=== PATIENT | female | born 1950 | race Caucasian/White ===

== ENCOUNTER 2020-04-27 08:05 | Outpatient (REF) | payer MEDICARE, SELFPAY ==
[2020-04-27 11:11] LABS: MANUAL DIFF FLAG NO
[2020-04-27 11:29] LABS: Estimated Average Glucose 97 mg/dL
[2020-04-27 11:33] LABS: Basophils Percent Auto 0.6 % (0-2); Eosinophils Absolute Auto 0.1 X10*3/uL (0.0-0.4); Eosinophils Percent Auto 1.9 % (0-4); Hematocrit 38.4 % (37-47); Hemoglobin 12.6 g/dl (12.0-16.0); Imm Gran Abs Auto 0.02 X10*3/uL (0.00-0.03); Imm Gran Pct Auto 0.4 % (0.0-0.4); Lymphocytes Absolute Auto 1.4 X10*3/uL (1.2-4.9); Lymphocytes Percent Auto 26.9 % (20-40); Mean Corpuscular HGB Conc 32.8 g/dl (31.0-35.0); Mean Corpuscular Hemoglobin 30.8 pg (27.0-33.0); Mean Corpuscular Volume 93.9 fL (80-98); Mean Platelet Volume 8.9 fL (9.4-12.3); Monocytes Absolute Auto 0.4 X10*3/uL (0.1-1.2); Monocytes Percent Auto 7.5 % (2-11); Neutrophils Absolute Auto 3.4 X10*3/uL (2.0-8.3); Neutrophils Percent Auto 62.7 % (45-73); Platelet Count 376 X10*3/uL (160-400); Red Blood Count 4.09 X10*6/uL (4.20-5.50); Red Cell Distribution Width 12.5 % (11.0-16.0); Retic HGB Equivalent 34.4 pg (30.0-35.0); Reticulocyte Percent 1.1 % (0.5-1.8); Reticulocytes Absolute 0.044 X10*6/uL (0.026-0.095); White Blood Count 5.4 X10*3/uL (4.8-10.8)
[2020-04-27 11:52] LABS: Alanine Aminotransferase 16 U/L (0-31); Albumin Level 4.8 g/dL (3.5-5.0); Alkaline Phosphatase 61 U/L (39-117); Anion Gap 13 (12-20); Aspartate Amino Transferase 22 U/L (5-31); Bilirubin Total 0.5 mg/dL (0.0-1.0); Blood Urea Nitrogen 9 mg/dL (9-16); Calcium 9.2 mg/dL (8.4-10.2); Carbon Dioxide 28 mmol/L (22-29); Chloride 101 mmol/L (96-108); Cholesterol 235 mg/dL; Estimated Glomerular Filt Rate > 60; Glucose Random 91 mg/dL (60-115); HDL Cholesterol 80 mg/dL; Iron 102 mcg/dL (30-160); LDL Cholesterol Calculated 140 mg/dl; Percent Iron Saturation 27 % (15-50); Potassium 4.4 mmol/L (3.3-5.1); Sodium 138 mmol/L (135-145); Total Iron Binding Capacity 384 mcg/dL (228-428); Total Protein 7.9 g/dL (6.5-8.0); Triglycerides 75 mg/dL; Unsaturated Iron Binding 282 ug/dL
[2020-04-27 11:59] LABS: Ferritin 23 ng/mL (10-250); Thyroid Stimulating Hormone 2.94 uIU/mL (0.32-4.0); Vitamin D 25-OH Total 26.3 ng/mL (>30)
[2020-04-27 12:19] LABS: Folate > 20.0 ng/mL (> or = 4.0); Vitamin B12 855 pg/mL (200-900)
== END 2020-04-27 08:06 | disposition home or self-care (01) ==
LOC: HO.HMGCLDS 08:05
PROVIDERS: PCP Internal Medicine; Visit Provider Internal Medicine
DX: E78.00 Pure hypercholesterolemia, unspecified (principal); E03.9 Hypothyroidism, unspecified; R73.02 Impaired glucose tolerance (oral)
CPT/HCPCS: 36415; 80053; 80061; 82306; 82607; 82728; 82746; 83036; 83540; 84439; 84443; 85025; 85045

== ENCOUNTER 2020-09-21 09:50 | Outpatient (REF) | payer MEDICARE, SELFPAY ==
--- NOTE | ~2020-09-21 | US_ITS ---
EXAMINATION: US ABDOMEN COMPLETE CLINICAL INFORMATION: Other specified abnormal findings of blood chemistry. COMPARISON: None TECHNIQUE: Real-time imaging of the abdominal viscera. FINDINGS: PANCREAS: Normal. ABDOMINAL AORTA: The proximal, mid, and distal segments are normal in caliber. INFERIOR VENA CAVA: Visualized portions are normal. LIVER: Normal. The liver is normal in size. The liver contour is normal. Parenchymal echogenicity is normal. No focal hepatic lesion. There is no intrahepatic biliary duct dilatation seen. GALLBLADDER: Normal. The gallbladder is physiologically distended without evidence of stones, sludge, polyps, wall thickening or pericholecystic fluid. COMMON BILE DUCT: Normal in caliber measuring 0.2 cm in diameter. RIGHT KIDNEY: Normal. No hydronephrosis. No renal calculi or focal parenchymal lesions. The kidney measures 10.4 cm in maximum dimension. LEFT KIDNEY: There is a minimally complex cyst seen in the upper pole of the left kidney measuring 1.7 x 1.9 x 1.6 cm. This is a focal area of wall thickening or No hydronephrosis or renal calculi. The kidney measures 11.6 cm in maximum dimension. SPLEEN: Normal. The spleen measures 8.1 cm in maximum dimension. FREE FLUID: None. US/US abdomen complete IMPRESSION: Normal-appearing liver. Minimally complex cyst in the upper pole of the left kidney measuring 1.7 x 1.9 x 1.6 cm with small area of wall thickening. Ultrasound follow-up in [address] or MRI follow-up of the kidneys with and without contrast recommended.
== END 2020-09-21 09:51 | disposition home or self-care (01) ==
LOC: HO.HMGCX 09:50
PROVIDERS: PCP Internal Medicine; Visit Provider Internal Medicine
DX: R10.11 Right upper quadrant pain (principal); R79.89 Other specified abnormal findings of blood chemistry
CPT/HCPCS: 76700

== ENCOUNTER 2020-10-05 14:35 | Outpatient (REF) | payer MEDICARE, SELFPAY | END 2020-10-05 14:36 | disposition home or self-care (01) | LOC: HO.LAB 14:35 | PROVIDERS: Visit Provider Nurse Practitioner Family | DX: Z20.822 Contact with and (suspected) exposure to COVID-19 (principal); J04.0 Acute laryngitis | CPT/HCPCS: U0003; U0005 ==

== ENCOUNTER 2020-11-04 12:57 | Outpatient (REF) | payer MEDICARE, SELFPAY ==
--- NOTE | ~2020-11-04 | XR_ITS ---
EXAMINATION: XR CHEST CLINICAL INFORMATION: Cough COMPARISON: None TECHNIQUE: 2 views of the chest were obtained. FINDINGS: Lungs hyperinflated. Mild biapical pleural thickening. Emphysematous changes. No significant abnormality is noted involving the heart, lungs, mediastinum, bony thorax or soft tissues. XR/XR chest 2V IMPRESSION: COPD. No infiltrate.
== END 2020-11-04 12:58 | disposition home or self-care (01) ==
LOC: HO.HMGCX 12:57
PROVIDERS: PCP Internal Medicine; Visit Provider Hospitalist
DX: R05 Cough (principal)
CPT/HCPCS: 71046

== ENCOUNTER 2021-04-25 09:09 | Outpatient (REF) | payer MEDICARE, SELFPAY ==
--- NOTE | ~2021-04-25 | US_ITS ---
EXAMINATION: US RETROPERITONEAL LIMITED (RENAL ONLY) CLINICAL INFORMATION: Cyst of kidney, acquired. COMPARISON: Ultrasound abdomen complete 09/21/2020. TECHNIQUE: Real-time imaging of the kidneys. FINDINGS: RIGHT KIDNEY: 11.0 x 4.3 x 4.8 cm (SAG x AP x TRV). The kidney is normal in size, contour, and echogenicity. Renal cortical thickness is normal. There is a 5 mm cyst in the lower pole. No renal calculi or hydronephrosis. LEFT KIDNEY: 11.8 x 4.7 x 4.3 cm (SAG x AP x TRV). The kidney is normal in size, contour, and echogenicity. Renal cortical thickness is normal. There is a 2 x 1.7 x 1.6 cm minimally complex cyst in the upper pole with area of wall thickening. This does not appear changed from September 2020 exam. No renal calculi or hydronephrosis. US/US renal BI IMPRESSION: Stable minimally complex left renal cyst. Small right renal cyst.
== END 2021-04-25 09:10 | disposition home or self-care (01) ==
LOC: HO.HMGCX 09:09
PROVIDERS: Visit Provider Internal Medicine
DX: N28.1 Cyst of kidney, acquired (principal)
CPT/HCPCS: 76775

== ENCOUNTER 2021-12-28 08:43 | Outpatient (REF) | payer MEDICARE, SELFPAY ==
[2021-12-28 09:07] LABS: MANUAL DIFF FLAG NO
[2021-12-28 09:19] LABS: Basophils Percent Auto 0.9 % (0-2); Eosinophils Absolute Auto 0.2 X10*3/uL (0.0-0.4); Eosinophils Percent Auto 4.6 % (0-4); Hematocrit 37.8 % (37.0-47.0); Hemoglobin 12.4 g/dl (12.0-16.0); Imm Gran Abs Auto 0.01 X10*3/uL (0.00-0.03); Imm Gran Pct Auto 0.2 % (0.0-0.4); Lymphocytes Absolute Auto 1.5 X10*3/uL (1.2-4.9); Lymphocytes Percent Auto 35.2 % (20-40); Mean Corpuscular HGB Conc 32.8 g/dl (31.0-35.0); Mean Corpuscular Hemoglobin 29.9 pg (27.0-33.0); Mean Corpuscular Volume 91.1 fL (80.0-98.0); Mean Platelet Volume 8.4 fL (9.4-12.3); Monocytes Absolute Auto 0.5 X10*3/uL (0.1-1.2); Monocytes Percent Auto 10.9 % (2-11); Neutrophils Absolute Auto 2.1 x10*3/uL (2.0-8.3); Neutrophils Percent Auto 48.2 % (45-73); Platelet Count 325 X10*3/uL (160-400); Red Blood Count 4.15 X10*6/uL (4.20-5.50); Red Cell Distribution Width 12.8 % (11.0-16.0); White Blood Count 4.3 X10*3/uL (4.8-10.8)
[2021-12-28 10:32] LABS: Folate 16.5 ng/mL (> or = 4.0); Vitamin B12 449 pg/mL (200-900)
[2021-12-28 10:53] LABS: Ferritin 50 ng/mL (10-250); Free T4 (Free Thyroxine) 0.93 ng/dL (0.71-1.85); Thyroid Stimulating Hormone 3.24 uIU/mL (0.32-4.0)
[2021-12-28 11:09] LABS: Alanine Aminotransferase 18 U/L (0-31); Albumin Level 4.6 g/dL (3.5-5.0); Alkaline Phosphatase 60 U/L (39-117); Anion Gap 16 (12-20); Aspartate Amino Transferase 24 U/L (5-31); Bilirubin Total 0.3 mg/dL (0.0-1.0); Blood Urea Nitrogen 15 mg/dL (9-16); Calcium 9.7 mg/dL (8.4-10.2); Carbon Dioxide 26 mmol/L (22-29); Chloride 98 mmol/L (96-108); Cholesterol 209 mg/dL; Estimated Glomerular Filt Rate > 60; Glucose Random 94 mg/dL (60-115); HDL Cholesterol 77 mg/dL; LDL Cholesterol Calculated 115 mg/dl; Potassium 5.4 mmol/L (3.3-5.1); Sodium 135 mmol/L (135-145); Total Protein 7.7 g/dL (6.5-8.0); Triglycerides 86 mg/dL
== END 2021-12-28 08:44 | disposition home or self-care (01) ==
LOC: HO.LAB 08:43
PROVIDERS: PCP Internal Medicine; Visit Provider Internal Medicine
DX: E03.9 Hypothyroidism, unspecified (principal); E78.00 Pure hypercholesterolemia, unspecified
CPT/HCPCS: 36415; 80053; 80061; 82607; 82728; 82746; 84439; 84443; 85025

== ENCOUNTER 2022-04-24 11:16 | Outpatient (REF) | payer MEDICARE, SELFPAY ==
--- NOTE | ~2022-04-24 | XR_ITS ---
EXAMINATION: XR SHOULDER, LEFT CLINICAL INFORMATION: Left shoulder pain. COMPARISON: None TECHNIQUE: Three views of the left shoulder. FINDINGS: The bones and soft tissues are normal. No fracture. Glenohumeral and acromioclavicular alignment is anatomic with normal joint space. No abnormal soft tissue calcifications. XR/XR shoulder LT min 2V IMPRESSION: Unremarkable left shoulder.
== END 2022-04-24 11:17 | disposition home or self-care (01) ==
LOC: HO.HMGCX 11:16
PROVIDERS: PCP Internal Medicine; Visit Provider Family Medicine
DX: M79.602 Pain in left arm (principal)
CPT/HCPCS: 73030

== ENCOUNTER → 2022-05-18 09:54 | Outpatient (BNVA) | payer MEDICARE, SELFPAY | PROVIDERS: PCP Internal Medicine; Visit Provider Physician Assistant | DX: M75.102 Unspecified rotator cuff tear or rupture of left shoulder, not specified as traumatic (principal); M79.7 Fibromyalgia; E55.9 Vitamin D deficiency, unspecified | CPT/HCPCS: 99202; J1040 ==

== ENCOUNTER 2022-05-30 08:49 | Outpatient (RCR) | payer MEDICARE, SELFPAY ==
--- NOTE | 2022-05-30 15:46 | MHC.PT.EP ---
[facility] [place] Office [place] Office [place] Office [address] [facility] [address] [phone] F: [phone] F: [phone] F: [phone] F: [phone] Physical Therapy Plan of Care Date of Evaluation: Date of Surgery: NA Diagnosis: PAINFUL ARC SYNDROME L SHLDER Assessment: Pt IS 72 YO LHD F REFERRED TO PT FROM [facility]THO DAISY) WITH PAINFUL ARC SYNDROME L SHLDER. 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 NO SPECIFIC INJURY. SHE THOUGHT IT WOULD WORK ITS WAY OUT, BUT IT HASNT. EVERY ONCE IN AWHILE HER L FINGERS FEEL TINGLY. REPORTS MOST PAIN WHEN LIFTS L ARM OUT TO SIDE AND ROTATING SHLDER (IR). REPORTS SHE HAS FIBROMYALGIA AND HAS ALWAYS HAD NECK AND SHOULDER ISSUES PRESENTS TO PT WITH LIMITED POSTURE, LIMITED CERV ROM, LIMITED L SHLDER ROM (BUT NO PAINFUL ARC NOTED..CAPSULAR PATTERN OF ROM LOSS NOTED), DECREASED L SHLDER STRENGTH, AND LIMITED ADLS. Pt REPORTS SOME L FINGER PARESTHESIA AT TIMES (N INVOLVEMENT). SHOULD BENEFIT FROM PT TO ADDRESS THESE ISSUES WITH ROM AND STRENGTH WORK, MODALITIES AND ST WORK PRN, POSTURE WORK, POSSIBLE NERVE GLIDES AND FURTHER ASSESSMENT OF CERVICAL INVOLVEMENT. Frequency and Duration: The patient will be seen 2X/WK X 4 WKS/WK X 4 WKS Short Term Goals: 1. INCREASED POSTURE AWARENESS AND AWARENESS SHLDER/NECK CARE 2. CENTRALIZE SXS Snf Goals: 1. I HEP WITH DC EX PLAN 2. DECREASED L UPPER ARM PAIN AT LEAST 50% WITH ADLS 3. INCREASED L SHLDER ROM AT LEAST 20 DEGREES T/O 4. IMPROVED SPADI (81/130 SOC) Treatment Plan: Modalities to reduce pain, spasms and effusion. Manual therapy to restore motion and function. Therapeutic exercise to improve strength and flexibility. Neuromuscular re-education for posture and balance. Therapeutic activities to return to functional activities of daily living. Electronically signed by: PARVEZ APGE PT Please sign and return to therapist. Thank you for your referral.
--- NOTE | 2022-08-22 15:24 | MHC.PT.DC ---
[facility] [place] Office [place] Office [place] Office [address] [place] [address] [address] [phone] F: [phone] F: [phone] F: [phone] F: [phone] Physical Therapy Discharge Report Diagnosis: PAINFUL ARC SYNDROME L SHLDER Date of Surgery: NA Date of Evaluation: 05/30/22 Date of Discharge: 08/22/22 Treatments to Date: 1 Cancellations to Date: No Shows to Date: Discharge Status: Recommend MD Follow-up Visit Non-compliance Discharge Summary: Pt SEEN FOR INIT EVAL ONLY. PER ASSESSMENT Pt IS 72 YO LHD F REFERRED TO PT FROM [facility]TH[facility] ([place]) WITH PAINFUL ARC SYNDROME L SHLDER. 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 NO SPECIFIC INJURY. SHE THOUGHT IT WOULD WORK ITS WAY OUT, BUT IT HASNT. EVERY ONCE IN AWHILE HER L FINGERS FEEL TINGLY. REPORTS MOST PAIN WHEN LIFTS L ARM OUT TO SIDE AND ROTATING SHLDER (IR). REPORTS SHE HAS FIBROMYALGIA AND HAS ALWAYS HAD NECK AND SHOULDER ISSUES PRESENTS TO PT WITH LIMITED POSTURE, LIMITED CERV ROM, LIMITED L SHLDER ROM (BUT NO PAINFUL ARC NOTED..CAPSULAR PATTERN OF ROM LOSS NOTED), DECREASED L SHLDER STRENGTH, AND LIMITED ADLS. Pt REPORTS SOME L FINGER PARESTHESIA AT TIMES (N INVOLVEMENT). SHOULD BENEFIT FROM PT TO ADDRESS THESE ISSUES WITH ROM AND STRENGTH WORK, MODALITIES AND ST WORK PRN, POSTURE WORK, POSSIBLE NERVE GLIDES AND FURTHER ASSESSMENT OF CERVICAL INVOLVEMENT. Pt THEN CANCELLED FURTHER VISITS WITH SELF DC Electronically signed by: PARVEZ PAGE PT Please sign and return to therapist. Thank you for your referral.
== END 2022-08-22 15:24 | disposition home or self-care (01) ==
LOC: HO.PTWFD 08:49
PROVIDERS: PCP Internal Medicine; Visit Provider Physician Assistant
DX: M75.102 Unspecified rotator cuff tear or rupture of left shoulder, not specified as traumatic (principal)
CPT/HCPCS: 97110; 97162; 97535

== ENCOUNTER → 2022-06-25 09:53 | Outpatient (BNVA) | payer MEDICARE, SELFPAY | PROVIDERS: PCP Internal Medicine; Visit Provider Physician Assistant | DX: M75.102 Unspecified rotator cuff tear or rupture of left shoulder, not specified as traumatic (principal) | CPT/HCPCS: 99212 ==

== ENCOUNTER 2022-07-20 09:22 | Outpatient (REF) | payer MEDICARE, SELFPAY ==
--- NOTE | ~2022-07-20 | MM_ITS ---
EXAMINATION: BONE DENSITOMETRY CLINICAL INDICATION: Age-related osteoporosis without current pathological fracture. COMPARISON: This is the patient's baseline examination. TECHNIQUE: Using a LiveStub DXA System (software version: 13.1) manufactured by [employer], dual-energy x-ray absorptiometry was performed of the lumbar spine and left hip. The images are of good technical quality. Summary results are attached. FINDINGS: AP SPINE L1-L4: BMD 1.131 g/cm2, Z-score 1.5, T-score -0.4, normal. LEFT FEMUR, NECK: BMD 0.751 g/cm2, Z-score -0.2, T-score -2.1, osteopenia. LEFT FEMUR, TOTAL: BMD 0.747 g/cm2, Z-score -0.4, T-score -2.1, osteopenia. IDENTIFIED RISK FACTORS: Menopause. HISTORY OF FRACTURE: None listed. MEDICATIONS: Calcium supplements or multivitamin, vitamin D. MM/XR DEXA axial skeleton IMPRESSION: 1. DIAGNOSIS: Osteopenia based on the lowest T-score value of -2.1 in the femoral neck and total femur applying World Health Organization criteria. 2. 10-YEAR FRACTURE RISK PREDICTION, FRAX: Major osteoporotic fracture (clinical spine, forearm, hip or shoulder) 10.6%. Hip fracture 2.3%. 3. Treatment Recommendations: NOF guidelines recommend consideration for treatment in postmenopausal women and men age 50 and older presenting with the following: -A hip or vertebral (clinical or morphometric) fracture. -T-score less than or equal to -2.5 at the femoral neck or spine after appropriate evaluation to exclude secondary causes. -Low bone mass at the hip or spine and a 10-year fracture probability by FRAX of greater than or equal to 3% for hip fracture or greater than or equal to 20% for major osteoporotic fracture based on the [place] adapted WHO algorithm. 4. Other Recommendations: All treatment decisions require clinical judgment and consideration of individual patient factors, including patient preferences, comorbidities, previous drug use, risk factors not captured in the FRAX model (e.g. frailty, falls, vitamin D deficiency, increased bone turnover, interval significant decline in bone density) and possible under or overestimation of fracture risk by FRAX. Additional medical evaluation for secondary cause of low bone mineral density may be appropriate. FUTURE SCAN RECOMMENDATION: People with diagnosed cases of osteoporosis or at high risk for fracture should have regular bone mineral density tests. For patients eligible for Medicare, routine testing is allowed once every 2 years. The testing frequency can be increased to one year for patients who have rapidly progressing disease, those who are receiving or discontinuing medical therapy to restore bone mass, or have additional risk factors.
== END 2022-07-20 09:23 | disposition home or self-care (01) ==
LOC: HO.MAMMO 09:22
PROVIDERS: PCP Internal Medicine; Visit Provider Internal Medicine
DX: Z13.820 Encounter for screening for osteoporosis (principal); Z78.0 Asymptomatic menopausal state; M81.0 Age-related osteoporosis without current pathological fracture
CPT/HCPCS: 77080

== ENCOUNTER → 2022-08-10 09:38 | Outpatient (BNVA) | payer MEDICARE, SELFPAY | PROVIDERS: PCP Internal Medicine; Visit Provider Physician Assistant | DX: M75.102 Unspecified rotator cuff tear or rupture of left shoulder, not specified as traumatic (principal); M54.12 Radiculopathy, cervical region | CPT/HCPCS: 99212 ==

== ENCOUNTER → 2022-09-05 09:38 | Outpatient (BNVA) | payer MEDICARE, SELFPAY | PROVIDERS: PCP Internal Medicine; Visit Provider Anesthesiology | DX: M75.102 Unspecified rotator cuff tear or rupture of left shoulder, not specified as traumatic (principal); M12.812 Other specific arthropathies, not elsewhere classified, left shoulder; G89.4 Chronic pain syndrome | CPT/HCPCS: 99202 ==

== ENCOUNTER → 2022-09-10 08:48 | Outpatient (BNVA) | payer MEDICARE, SELFPAY | PROVIDERS: PCP Internal Medicine; Visit Provider Physician Assistant | DX: M75.102 Unspecified rotator cuff tear or rupture of left shoulder, not specified as traumatic (principal) | CPT/HCPCS: 20610; 99212; J1040 ==

== ENCOUNTER 2022-09-17 07:29 | Outpatient (REF) | payer MEDICARE, SELFPAY | END 2022-09-17 07:30 | disposition home or self-care (01) | LOC: HO.MRI 07:29 | PROVIDERS: PCP Internal Medicine; Visit Provider Physician Assistant | DX: M75.102 Unspecified rotator cuff tear or rupture of left shoulder, not specified as traumatic (principal); M12.812 Other specific arthropathies, not elsewhere classified, left shoulder | CPT/HCPCS: 73221 ==

== ENCOUNTER 2022-09-24 10:45 | Outpatient (AMB) | payer MEDICARE, SELFPAY ==
--- NOTE | 2022-09-24 10:43 | MHC.OFFVIS ---
Intake Vital Signs 09/24/22 10:47 Height 5 ft 7 in Weight 129 lb BMI 20.2 Intake Visit Reasons: Tele - Left shoulder MRI review Intake Note: Irena is a 72 year old female who presents today for a MRI review for her left shoulder. Allergies penicillin V Allergy (Unknown, Verified 09/24/22 10:46) rash Penicillins [PENICILLINS] Allergy (Unknown, Verified 09/24/22 10:46) RASH Sulfa (Sulfonamide Antibiotics) [SULFA (SULFONAMIDE ANTIBIOTICS)] Allergy (Unknown, Verified 09/24/22 10:46) RASH HPI Tele - Left shoulder MRI review HPI Details 72-year-old female who presents via telehealth today for a follow up of left shoulder pain and results of her MRI. [facility] Medical History Anemia Anxiety Breast cancer screening by mammogram Bronchitis Cough Fibromyalgia Hypercholesterolemia Hypothyroidism Impacted cerumen of both ears Impacted cerumen of left ear Insomnia Laryngitis Left arm pain Migraine Neck pain RUQ abdominal pain Vitamin D deficiency Surgical History History of colon surgery Family History Father Hypertension Brain cancer Mother No problems noted. Brother Prostate cancer Daughter In good health Social History Housing: House Alcohol intake: current Alcohol intake frequency: holidays/special occasions only Patient Tobacco Use Status: Former Tobacco user Years Smoked: stopped 1979 e-Cigarette/Vaping Use: Never Used Second Hand Smoke Exposure: No service: No Current occupational status: retired Current occupation: left hand Cognitive needs: No Hearing needs: No Vision needs: Yes Review of Systems Const All systems reviewed & are unremarkable except as noted in HPI and below Physical Exam Vital Signs: BMI result Body Mass Index 20.2 Extrem Other: Deferred due to being a telehealth visit. Assessment & Plan Assessment & Plan (1) Painful arc syndrome of left shoulder: Code(s): M75.102 - Unspecified rotator cuff tear or rupture of left shoulder, not specified as traumatic Plan Ms. Hill is a 72-year-old female who presents via telehealth today for a follow up of left shoulder pain and results of her MRI. I again discussed the role of formal physical therapy with the patient. She states she does a lot of work around her house and exercises daily. Therefore she would like to defer at this time. She also expressed that she is not sure her insurance will cover physical therapy. She has decided that in the event her symptoms worsen or should she feel she has plateau then she will contact the office for a referral to formal physical therapy. I also discussed the role of cortisone injections and educated her that she is able to receive them every 3 months and no sooner. Follow up will be PRN, or sooner if needed. MRI of the left shoulder, obtained on 09/17/2022, revealed: 1. Mild to moderate supraspinatus and subscapularis tendinosis. No definite rotator cuff tear. 2. Mild subacromial subdeltoid bursitis. 3. Mild glenohumeral osteoarthritis with a small joint effusion. Patient Instructions: Scribed for Bri Joaquin PA-C by Marisel Waters medical technician assistant, on 09/24/2022 at 10:30 am, EST. Your attestation Telehealth Telehealth Location of provider rendering services: practice address Location of patient: address on file Patient Identification confirmed using: Name, : Yes Telehealth method: voice only Patient verbally consented to treatment: Yes Patient verbally consented to billing insurance company: Yes Patient informed of any privacy concerns related to visit: Yes Minutes spent on Phone/Video with Pt.: 5 Coding Level of Care Code Tele Est Pt Level 3 (99969) Diagnoses Painful arc syndrome of left shoulder M75.102
[2022-09-24 10:47] VITALS: BMI 20.2
== END 2022-09-24 10:47 | disposition home or self-care (01) ==
LOC: HO.HOS 10:45
PROVIDERS: PCP Internal Medicine; Visit Provider Physician Assistant
DX: M75.102 Unspecified rotator cuff tear or rupture of left shoulder, not specified as traumatic (principal)
CPT/HCPCS: 99441

== ENCOUNTER → 2022-09-24 10:45 | Outpatient (BNVA) | payer MEDICARE, SELFPAY | PROVIDERS: PCP Internal Medicine; Visit Provider Physician Assistant ==

== ENCOUNTER 2022-12-28 06:35 | Outpatient (REF) | payer MEDICARE, SELFPAY ==
[2022-12-28 06:45] LABS: MANUAL DIFF FLAG NO
[2022-12-28 07:08] LABS: Basophils Percent Auto 0.7 % (0-2); Eosinophils Absolute Auto 0.1 X10*3/uL (0.0-0.4); Eosinophils Percent Auto 3.2 % (0-4); Hemoglobin 12.5 g/dl (12.0-16.0); Imm Gran Abs Auto 0.01 X10*3/uL (0.00-0.03); Imm Gran Pct Auto 0.2 % (0.0-0.4); Lymphocytes Absolute Auto 1.4 X10*3/uL (1.2-4.9); Lymphocytes Percent Auto 31.2 % (20-40); Mean Corpuscular HGB Conc 32.9 g/dl (31.0-35.0); Mean Corpuscular Hemoglobin 30.4 pg (27.0-33.0); Mean Corpuscular Volume 92.5 fL (80.0-98.0); Mean Platelet Volume 8.4 fL (9.4-12.3); Monocytes Absolute Auto 0.4 X10*3/uL (0.1-1.2); Monocytes Percent Auto 8.1 % (2-11); Neutrophils Absolute Auto 2.5 x10*3/uL (2.0-8.3); Neutrophils Percent Auto 56.6 % (45-73); Platelet Count 376 X10*3/uL (160-400); Red Blood Count 4.11 X10*6/uL (4.20-5.50); Red Cell Distribution Width 12.2 % (11.0-16.0); White Blood Count 4.4 X10*3/uL (4.8-10.8)
[2022-12-28 07:32] LABS: Anion Gap 14 (12-20)
[2022-12-28 07:37] LABS: Alanine Aminotransferase 12 U/L (0-31); Albumin Level 4.6 g/dL (3.5-5.0); Alkaline Phosphatase 61 U/L (39-117); Aspartate Amino Transferase 18 U/L (5-31); Bilirubin Total 0.6 mg/dL (0.0-1.0); Blood Urea Nitrogen 10 mg/dL (9-16); Calcium 9.8 mg/dL (8.4-10.2); Carbon Dioxide 25 mmol/L (22-29); Chloride 102 mmol/L (96-108); Cholesterol 211 mg/dL (<200); Estimated Glomerular Filt Rate > 60; Glucose Random 93 mg/dL (60-115); HDL Cholesterol 71 mg/dL (>40); LDL Cholesterol Calculated 127 mg/dL (<100); Sodium 137 mmol/L (135-145); Total Protein 7.8 g/dL (6.5-8.0); Triglycerides 68 mg/dL (<150)
[2022-12-28 07:47] LABS: Free T4 (Free Thyroxine) 0.99 ng/dL (0.71-1.85); Thyroid Stimulating Hormone 3.06 uIU/mL (0.32-4.0); Vitamin D 25-OH Total 29.1 ng/mL (>30)
[2022-12-28 08:05] LABS: Folate 12.6 ng/mL (> or = 4.0); Vitamin B12 358 pg/mL (200-900)
== END 2022-12-28 06:36 | disposition home or self-care (01) ==
LOC: HO.LAB 06:35
PROVIDERS: PCP Internal Medicine; Visit Provider Internal Medicine
DX: R73.02 Impaired glucose tolerance (oral) (principal); E78.00 Pure hypercholesterolemia, unspecified; M81.0 Age-related osteoporosis without current pathological fracture
CPT/HCPCS: 36415; 80053; 80061; 82306; 82607; 82746; 84439; 84443; 85025

== ENCOUNTER 2023-01-11 09:56 | Outpatient (AMB) | payer MEDICARE, SELFPAY ==
[2023-01-11 10:00] VITALS: BP 152/92; PULSE 81; O2SAT 98; BMI 20.5
--- NOTE | 2023-01-11 10:00 | MHC.PC.OV ---
Vital Signs 01/11/23 10:00 Height 5 ft 7 in Weight 131 lb BMI 20.5 BP 152/92 H Blood Pressure Location Lt brachial Position Sitting Pulse 81 Pulse Source Pulse Oximeter Pulse Oximetry (%) 98 Oxygen Delivery Method Room Air Intake Visit Reasons: Annual Physical Allergies penicillin V Allergy (Unknown, Verified 01/11/23 10:00) rash Penicillins [PENICILLINS] Allergy (Unknown, Verified 01/11/23 10:00) RASH Sulfa (Sulfonamide Antibiotics) [SULFA (SULFONAMIDE ANTIBIOTICS)] Allergy (Unknown, Verified 01/11/23 10:00) RASH Medication List - Last Reconciled 01/11/23 by Raheel Bae Po, amitriptyline 10 mg PO BEDTIME 90 days cholecalciferol (vitamin D3) 50 mcg PO DAILY ferrous sulfate (Feosol) 325 mg PO BID levothyroxine 50 mcg PO QAM lorazepam 1 mg PO BID-TID 30 days sumatriptan succinate 50 mg PO Q2-4H PRN tramadol 25 mg (1/2 x 50 mg) PO BEDTIME PRN trazodone 25 mg (1/2 x 50 mg) PO BEDTIME PRN Tobacco use date assessed: 07/06/22 Fall risk assessment: 1 Fall in past year Last assessed Fall Risk: 01/11/23 Dental Screening Dental Screen Date: 01/11/23 Did you have a dental visit in the last 12 months?: Yes Did you have a dental problem in the last 6 months where you did not have access to dental care?: No Was dental information given to patient?: Patient has dentist HPI Annual Physical HPI Details 72-year-old female with impaired glucose tolerance, hypercholesterolemia hypothyroidism generalized anxiety disorder osteoporosis last seen in June 2022. Noted some elevated blood pressure the last time and was advised to monitor this. Patient is here for physical patient is up-to-date with colonoscopy, up-to-date with mammogram and bone density. Patient was seen by the Ortho for the left shoulder pain September 2019 diagnosis of painful arc syndrome of the left shoulder advised physical therapy but declined MRI of the left shoulder September 2022 revealed mild to moderate supraspinatus and subscapularis tendinosis no definite rotator cuff tear mild subacromial deltoid bursitis mild glenohumeral arthritis. Patient was seen by the pain management also had an injection done April 2022 from Ortho [facility] Medical History Anemia Anxiety Breast cancer screening by mammogram Bronchitis Cough Fibromyalgia Hypercholesterolemia Hypothyroidism Impacted cerumen of both ears Impacted cerumen of left ear Insomnia Laryngitis Left arm pain Migraine Neck pain RUQ abdominal pain Vitamin D deficiency Surgical History History of colon surgery Family History Father Hypertension Brain cancer Mother No problems noted. Brother Prostate cancer Daughter In good health Social History (Updated 01/11/23 @ 10:28 by Raheel Colvin MD) Housing: House Alcohol intake: current Alcohol intake frequency: holidays/special occasions only Patient Tobacco Use Status: Former Tobacco user Tobacco use type: Cigarette Years Smoked: 1979 e-Cigarette/Vaping Use: Never Used Second Hand Smoke Exposure: No service: No Current occupational status: retired Current occupation: left hand Cognitive needs: No Hearing needs: No Vision needs: Yes Questionnaire PHQ-9 Over the last 2 weeks, how often have you been bothered by any of the following problems? 1. Little interest or pleasure in doing things: not at all 2. Feeling down, depressed, or hopeless: not at all 3. Trouble falling or staying asleep, or sleeping too much: not at all 4. Feeling tired or having little energy: not at all 5. Poor appetite or overeating: not at all 6. Feeling bad about yourself - or that you are a failure or have let yourself or your family down: not at all 7. Trouble concentrating on things, such as reading the newspaper or watching television: not at all 8. Moving or speaking so slowly that other people could have noticed. Or the opposite - being so fidgety or restless that you have been moving around a lot more than usual: not at all 9. Thoughts that you would be better off or of hurting yourself in some way: not at all Total score: 0 Depression Screening Interpretation: Negative Depression Screening Done: Yes Source: Developed by Drs. Buck Colvin, Kelsy Carrillo, Jose Martínez and colleagues, with an educational marciano from [employer] Thrive Questionnaire Date Thrive assessed: 07/06/22 AUDIT C Alcohol Use Questionnaire (AUDIT-C) 1. How often do you have a drink containing alcohol?: 2-4 times a month 2. How many drinks containing alcohol do you have on a typical day when you are drinking?: 1 or 2 3. How often do you have six or more drinks on one occasion?: Never Total Score: 2 Score Reviewed/Action Taken: No BERNICE-7 AMB Questionnaire BERNICE-7 Date BERNICE - 7 assessed: 07/06/22 Source: Developed by Drs. Buck Colvin, Kelsy Carrillo, Jose Martínez and colleagues, with an educational marciano from [employer] Review of Systems Const Denies poor appetite and Denies weakness Eyes Denies no additional complaints ENT Reports Normal hearing present, Denies dizziness, Denies nasal congestion, Denies tinnitus and Denies sore throat Card Denies chest pain, Denies syncope, Denies rapid heart rate and Denies dyspnea Resp Denies cough and Denies dyspnea GI Denies change in stool character, Reports constipation, Denies diarrhea, Denies nausea and Denies vomiting Denies urinary frequency, Denies difficulty voiding and Denies dysuria Neuro Reports Normal hearing present, Denies confusion, Denies dizziness, Denies syncope and Denies weakness Psych Denies confusion Physical exam (Primary Care) Vital Signs: Last Vital Signs Pulse 81 01/11/23 10:00 BP 152/92 H 01/11/23 10:00 Pulse Ox 98 01/11/23 10:00 Oxygen Delivery Method Room Air 01/11/23 10:00 BMI result Body Mass Index 20.5 Tobacco/Smoking Status: Tobacco use Status Tobacco use date assessed 07/06/22 01/11/23 10:05 Patient Tobacco Use Status Former Tobacco user 01/11/23 10:05 Tobacco use type Cigarette 01/11/23 10:05 e-Cigarette/Vaping Use Never Used 01/11/23 10:05 PHQ-9: PHQ-9 Score PHQ-9: Total score 0 01/11/23 10:05 Depression Screening Interpretation: Negative Thrive Assessment: Date of Thrive Assessment Date Thrive assessed 07/06/22 01/11/23 10:05 Const General: No confusion Orientation/consciousness: No confusion HENMT Head: Yes normocephalic Ears: external ears normal and TM's normal bilaterally Face and sinus: Yes normal facial exam Mouth: moist mucous membranes Throat: Yes tonsils normal Eyes Conjunctivae: conjunctivae normal Pupils: Equal, round and reactive pupils present and Pupil accommodation reflex normal Direct Ophthalmoscopy: normal light reflex Neck Neck: No lymphadenopathy Thyroid: Thyroid normal Chest Chest palpation & inspection: normal inspection of the chest Resp Effort & Inspection: normal respiratory effort and no audible wheezes Auscultation: clear to auscultation bilaterally, no crackles, no wheezes and lung sounds not diminished Cardio Rate: regular rate Rhythm: regular rhythm Peripheral pulses: radial pulses present and dorsalis pedis present GI Palpation (GI): no masses Auscultation: normal bowel sounds and normoactive bowel sounds Rectal Exam - Female: deferred Skin General skin exam: no rashes or lesions noted Rashes: no rashes Neuro General: No confusion Cranial nerves: Yes Equal, round and reactive pupils present and Yes Normal hearing present Cognition (Neuro): normal cognition Gait exam (Neuro): Normal gait present Motor exam (neuro): 5/5 motor strength present throughout Deep tendon reflexes (DTR's): Right brachioradialis reflex intensity grade: 2+, Left brachioradialis reflex intensity grade: 2+, Right patellar reflex intensity grade: 2+ and Left patellar reflex intensity grade: 2+ Extrem General: No edema Assessment and Plan Assessment & Plan (1) Annual physical exam: Code(s): Z00.00 - Encounter for general adult medical examination without abnormal findings (2) Hypothyroidism: Code(s): E03.9 - Hypothyroidism, unspecified Qualifiers: Hypothyroidism type: acquired Qualified Code(s): E03.9 - Hypothyroidism, unspecified Plan: Continue with thyroid medication (3) Hypercholesterolemia: Code(s): E78.00 - Pure hypercholesterolemia, unspecified Plan: Avoid fried foods, chicken skin, eggs, butter margarine, pastries and meat. Be it pork or beef they have a lot of cholesterol LDL goal of less than 130 and triglyceride of less than 150 patient's blood work December 2022 is in the normal range (4) Impaired glucose tolerance: Code(s): R73.02 - Impaired glucose tolerance (oral) Plan: Decrease the amount of carbohydrate intake, pasta, bread, rice and potatoes are all sugar and that is aside from all the sweet stuff, remember that fruits are good but they are Sweet also. (5) Generalized anxiety disorder: Comment: Declined referral for counseling Code(s): F41.1 - Generalized anxiety disorder Plan: Continue with medication as needed (6) Blood pressure elevated without history of HTN: Code(s): R03.0 - Elevated blood-pressure reading, without diagnosis of hypertension (7) Rotator cuff tear arthropathy of left shoulder: Code(s): M75.102 - Unspecified rotator cuff tear or rupture of left shoulder, not specified as traumatic; M12.812 - Other specific arthropathies, not elsewhere classified, left shoulder Plan: Patient follows up with Orthopedics and has decided to just monitor (8) Hypertension: Code(s): I10 - Essential (primary) hypertension Medications: New hydrochlorothiazide 12.5 mg PO DAILY 30 tabs 4RF I10 - Essential (primary) hypertension Coding Level of Care Code Est Pt Prev Care >65y(90227) Diagnoses Annual physical exam Z00.00 Acquired hypothyroidism E03.9 Hypothyroidism type: acquired Hypercholesterolemia E78.00 Impaired glucose tolerance R73.02 Generalized anxiety disorder F41.1 Blood pressure elevated without history of HTN R03.0 Rotator cuff tear arthropathy of left shoulder M75.102; M12.812 Hypertension I10 Additional Codes PHQ-9 - 72989 - PHQ-9 Billing: [id number])
== END 2023-01-11 10:50 | disposition home or self-care (01) ==
PROVIDERS: Visit Provider Internal Medicine
DX: Z00.00 Encounter for general adult medical examination without abnormal findings (principal); E03.9 Hypothyroidism, unspecified; E78.00 Pure hypercholesterolemia, unspecified; R73.02 Impaired glucose tolerance (oral); F41.1 Generalized anxiety disorder; R03.0 Elevated blood-pressure reading, without diagnosis of hypertension; M75.102 Unspecified rotator cuff tear or rupture of left shoulder, not specified as traumatic; M12.812 Other specific arthropathies, not elsewhere classified, left shoulder; I10 Essential (primary) hypertension
CPT/HCPCS: 99397

== ENCOUNTER 2023-02-21 10:00 | Outpatient (RCR) | payer MEDICARE, SELFPAY | END 2023-04-16 13:33 | disposition home or self-care (01) | LOC: HO.PTWFD 10:00 | PROVIDERS: PCP Internal Medicine; Visit Provider Anesthesiology | DX: M75.102 Unspecified rotator cuff tear or rupture of left shoulder, not specified as traumatic (principal); M12.812 Other specific arthropathies, not elsewhere classified, left shoulder; G89.4 Chronic pain syndrome | CPT/HCPCS: 97110; 97140; 97161 ==

== ENCOUNTER 2023-05-10 09:29 | Outpatient (AMB) | payer MEDICARE, SELFPAY ==
[2023-05-10 09:40] VITALS: BP 132/70; PULSE 70; O2SAT 99; BMI 20.7
--- NOTE | 2023-05-10 09:40 | A.OFFPC_ITS ---
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 Allergies penicillin V Allergy (Unknown, Verified 05/10/23 09:40) rash Penicillins [PENICILLINS] Allergy (Unknown, Verified 05/10/23 09:40) RASH Sulfa (Sulfonamide Antibiotics) [SULFA (SULFONAMIDE ANTIBIOTICS)] Allergy (Unknown, Verified 05/10/23 09:40) RASH Medication List - Last Reconciled 05/10/23 by Raheel Colvin MD amitriptyline 10 mg PO BEDTIME 90 days cholecalciferol (vitamin D3) 50 mcg PO DAILY ferrous sulfate (Feosol) 325 mg PO BID hydrochlorothiazide 25 mg PO DAILY levothyroxine 50 mcg PO QAM lorazepam 1 mg PO BID-TID 30 days sumatriptan succinate 50 mg PO Q2-4H PRN tramadol 25 mg (1/2 x 50 mg) PO BEDTIME PRN trazodone 25 mg (1/2 x 50 mg) PO BEDTIME PRN Tobacco use date assessed: 05/10/23 Fall risk assessment: No Falls in past year Last assessed Fall Risk: 05/10/23 Dental Screening Dental Screen Date: 05/10/23 Did you have a dental visit in the last 12 months?: Yes Did you have a dental problem in the last 6 months where you did not have access to dental care?: No Was dental information given to patient?: Patient has dentist HPI 2 Months Follow up HPI Details 73-year-old female with hypothyroidism h ypercholesterolemia impaired glucose tolerance generalized anxiety disorder and left shoulder rotator cuff arthropathy last seen in December 2022. Patient's colonoscopy was August 2018 having tubular adenoma. Mammogram is due and up-to-date with bone density. Review of the notes had house calls [facility] Medical History (Updated 05/10/23 @ 09:53 by Raheel Colvin MD) Blood pressure elevated without history of HTN Left arm pain Breast cancer screening by mammogram Impacted cerumen of left ear Impacted cerumen of both ears Bronchitis Cough Laryngitis RUQ abdominal pain Anemia Neck pain Hypercholesterolemia Vitamin D deficiency Migraine Hypothyroidism Fibromyalgia Anxiety Insomnia Surgical History History of colon surgery Family History Father Hypertension Brain cancer Mother No problems noted. Brother Prostate cancer Daughter In good health Social History (Updated 01/11/23 @ 10:28 by Raheel Colvin MD) Housing: House Alcohol intake: current Alcohol intake frequency: holidays/special occasions only Patient Tobacco Use Status: Former Tobacco user Tobacco use type: Cigarette Years Smoked: stopped 1979 e-Cigarette/Vaping Use: Never Used Second Hand Smoke Exposure: No service: No Current occupational status: retired Current occupation: left hand Cognitive needs: No Hearing needs: No Vision needs: Yes Questionnaire Thrive Questionnaire Date Thrive assessed: 07/06/22 AUDIT C Alcohol Use Questionnaire (AUDIT-C) 1. How often do you have a drink containing alcohol?: 2-4 times a month 2. How many drinks containing alcohol do you have on a typical day when you are drinking?: 1 or 2 3. How often do you have six or more drinks on one occasion?: Never Total Score: 2 Score Reviewed/Action Taken: No BERNICE-7 AMB Questionnaire BERNICE-7 Date BERNICE - 7 assessed: 07/06/22 Source: Developed by Drs. Buck Colvin, Kelsy Carrillo, Jose Martínez and colleagues, with an educational marciano from [employer]. Physical exam (Primary Care) Vital Signs: Last Vital Signs Pulse 70 05/10/23 09:40 BP 132/70 05/10/23 09:40 Pulse Ox 99 05/10/23 09:40 Oxygen Delivery Method Room Air 05/10/23 09:40 BMI result Body Mass Index 20.7 Tobacco/Smoking Status: Tobacco use Status Tobacco use date assessed 05/10/23 05/10/23 09:45 Patient Tobacco Use Status Former Tobacco user 05/10/23 09:45 Tobacco use type Cigarette 05/10/23 09:45 e-Cigarette/Vaping Use Never Used 05/10/23 09:45 Thrive Assessment: Date of Thrive Assessment Date Thrive assessed 07/06/22 05/10/23 09:45 Const General: alert; No acute distress Eyes Conjunctivae: conjunctivae normal Resp Auscultation: clear to auscultation bilaterally Cardio Rate: regular rate Rhythm: regular rhythm GI Inspection: Yes normal to inspection Extrem General: Yes normal to inspection and No edema Assessment and Plan Assessment & Plan (1) Hypertension: Code(s): I10 - Essential (primary) hypertension Plan: Continue with blood pressure medication. Decrease salt intake and exercise presently on hydrochlorothiazide 12.5 mg once a day (2) Rotator cuff tear arthropathy of left shoulder: Code(s): M75.102 - Unspecified rotator cuff tear or rupture of left shoulder, not specified as traumatic; M12.812 - Other specific arthropathies, not elsewhere classified, left shoulder Plan: Patient has been sent for physical therapy (3) Hypothyroidism: Code(s): E03.9 - Hypothyroidism, unspecified Qualifiers: Hypothyroidism type: acquired Qualified Code(s): E03.9 - Hypothyroidism, unspecified Plan: Continue with thyroid medication once a day (4) Hypercholesterolemia: Code(s): E78.00 - Pure hypercholesterolemia, unspecified Plan: Avoid fried foods, chicken skin, eggs, butter margarine, pastries and meat. Be it pork or beef they have a lot of cholesterol LDL goal of less than 130 and triglyceride of less than 150 patient on diet control and December 2022 blood work within normal limits (5) Impaired glucose tolerance: Code(s): R73.02 - Impaired glucose tolerance (oral) Plan: Decrease the amount of carbohydrate intake, pasta, bread, rice and potatoes are all sugar and that is aside from all the sweet stuff, remember that fruits are good but they are Sweet also. (6) Generalized anxiety disorder: Comment: Declined referral for counseling Code(s): F41.1 - Generalized anxiety disorder Plan: Continue with therapy (7) Mammogram declined: Code(s): Z53.20 - Procedure and treatment not carried out because of patient's decision for unspecified reasons (8) Tubular adenoma of colon: Code(s): D12.6 - Benign neoplasm of colon, unspecified Orders: Orders Complete Blood Count Auto Diff 3 Months I10 - Essential (primary) hypertension Comprehensive Met. Panel 3 Months I10 - Essential (primary) hypertension Thyroid Stimulating Hormone 3 Months I10 - Essential (primary) hypertension Lipid Panel 3 Months E78.00 - Pure hypercholesterolemia, unspecified, I10 - Essential (primary) hypertension Vitamin B12 and Folate 3 Months I10 - Essential (primary) hypertension Vitamin D 25-OH Total 3 Months I10 - Essential (primary) hypertension Free T4 (Free Thyroxine) 3 Months I10 - Essential (primary) hypertension Referrals Gastroenterology Referral D12.6 - Benign neoplasm of colon, unspecified Medications: Changed From hydrochlorothiazide 12.5 mg PO DAILY 30 tabs 4RF I10 - Essential (primary) hypertension To hydrochlorothiazide 25 mg PO DAILY 90 tabs 2RF I10 - Essential (primary) hypertension Refilled tramadol 25 mg (1/2 x 50 mg) PO BEDTIME PRN 30 tabs 1RF pain M54.2 - Cervicalgia Coding Level of Care Code Est Pt Level 4 (22659) Diagnoses Hypertension I10 Rotator cuff tear arthropathy of left shoulder M75.102; M12.812 Acquired hypothyroidism E03.9 Hypothyroidism type: acquired Hypercholesterolemia E78.00 Impaired glucose tolerance R73.02 Generalized anxiety disorder F41.1 Mammogram declined Z53.20 Tubular adenoma of colon D12.6
== END 2023-05-10 10:16 | disposition home or self-care (01) ==
PROVIDERS: PCP Internal Medicine; Visit Provider Internal Medicine
DX: I10 Essential (primary) hypertension (principal); M75.102 Unspecified rotator cuff tear or rupture of left shoulder, not specified as traumatic; M12.812 Other specific arthropathies, not elsewhere classified, left shoulder; E03.9 Hypothyroidism, unspecified; E78.00 Pure hypercholesterolemia, unspecified; R73.02 Impaired glucose tolerance (oral); F41.1 Generalized anxiety disorder; Z53.20 Procedure and treatment not carried out because of patient's decision for unspecified reasons; D12.6 Benign neoplasm of colon, unspecified
CPT/HCPCS: 99214

== ENCOUNTER 2023-05-17 11:26 | Outpatient (REF) | payer MEDICARE, SELFPAY ==
--- NOTE | ~2023-05-17 | XR_ITS ---
EXAMINATION: XR HIP, LEFT CLINICAL INFORMATION: Left hip pain COMPARISON: None available. TECHNIQUE: Two views of the left hip. FINDINGS: No fracture. Alignment is anatomic. Hip joint space is maintained. Soft tissues are unremarkable. XR/XR hip LT min 2V IMPRESSION: Normal left hip.
== END 2023-05-17 11:27 | disposition home or self-care (01) ==
LOC: HO.HMGCX 11:26
PROVIDERS: PCP Internal Medicine; Visit Provider Internal Medicine
DX: M25.552 Pain in left hip (principal)
CPT/HCPCS: 73502

== ENCOUNTER 2023-11-11 14:27 | Outpatient (AMB) | payer MEDICARE, SELFPAY ==
[2023-11-11 14:29] VITALS: BP 132/78; PULSE 67; O2SAT 98
--- NOTE | 2023-11-11 14:29 | MHC.PC.OV ---
Vital Signs 11/11/23 14:29 Height 5 ft 7 in Weight 128 lb BMI 20.0 BP 132/78 Blood Pressure Location Lt brachial Position Sitting Pulse 67 Pulse Source Pulse Oximeter Pulse Oximetry (%) 98 Oxygen Delivery Method Room Air Intake Visit Reasons: 3 MONTH MED VISIT Allergies penicillin V Allergy (Unknown, Verified 11/11/23 14:30) rash Penicillins [PENICILLINS] Allergy (Unknown, Verified 11/11/23 14:30) RASH Sulfa (Sulfonamide Antibiotics) [SULFA (SULFONAMIDE ANTIBIOTICS)] Allergy (Unknown, Verified 11/11/23 14:30) RASH Tobacco use date assessed: 05/10/23 Fall risk assessment: No Falls in past year Last assessed Fall Risk: 11/11/23 Dental Screening Dental Screen Date: 05/10/23 HPI 3 MONTH MED VISIT HPI Details 73-year-old female with hypertension hypothyroidism, hypercholesterolemia, impaired glucose tolerance and generalized anxiety disorder last seen in 05/07/2023. Patient also has left shoulder rotator cuff arthropathy/tear and has been sent for physical therapy. Patient was reminded about colonoscopy. Declined mammogram.. Patient did have a left hip x-ray which is negative. [facility] Medical History (Updated 05/15/23 @ 21:25 by Raheel Colvin MD) Blood pressure elevated without history of HTN Left arm pain Breast cancer screening by mammogram Impacted cerumen of left ear Impacted cerumen of both ears Bronchitis Cough Laryngitis RUQ abdominal pain Anemia Neck pain Hypercholesterolemia Vitamin D deficiency Migraine Hypothyroidism Fibromyalgia Anxiety Insomnia Surgical History History of colon surgery Family History Father Hypertension Brain cancer Mother No problems noted. Brother Prostate cancer Daughter In good health Social History (Updated 01/11/23 @ 10:28 by Raheel Colvin MD) Housing: House Alcohol intake: current Alcohol intake frequency: holidays/special occasions only Patient Tobacco Use Status: Former Tobacco user Tobacco use type: Cigarette Years Smoked: stopped 1979 e-Cigarette/Vaping Use: Never Used Second Hand Smoke Exposure: No service: No Current occupational status: retired Current occupation: left hand Cognitive needs: No Hearing needs: No Vision needs: Yes Questionnaire PHQ-9 Over the last 2 weeks, how often have you been bothered by any of the following problems? 1. Little interest or pleasure in doing things: not at all 2. Feeling down, depressed, or hopeless: not at all 3. Trouble falling or staying asleep, or sleeping too much: not at all 4. Feeling tired or having little energy: not at all 5. Poor appetite or overeating: not at all 6. Feeling bad about yourself - or that you are a failure or have let yourself or your family down: not at all 7. Trouble concentrating on things, such as reading the newspaper or watching television: not at all 8. Moving or speaking so slowly that other people could have noticed. Or the opposite - being so fidgety or restless that you have been moving around a lot more than usual: not at all 9. Thoughts that you would be better off or of hurting yourself in some way: not at all Total score: 0 Depression Screening Interpretation: Negative Depression Screening Done: Yes Source: Developed by Drs. Buck Colvin, Kelsy Carrillo, Jose Martínez and colleagues, with an educational marciano from [employer]. Thrive Questionnaire Date Thrive assessed: 11/11/23 I am a: Patient What is your living situation today?: I have a steady place to live Within the past 12 months, did the food you bought not last and you didn't have the money to get more?: Never true Within the past 12 months, did you worry whether your food would run out before you got money to buy more?: Never true Do you have trouble paying for medicines?: No Do you have trouble getting transportation to medical appointments?: No Do you have trouble paying your heating and electricity bill?: No Do you have trouble taking care of your child, family member or friend?: No Do you have trouble with day-to-day activities such as bathing, preparing meals, shopping, managing finances, etc.?: No Are you currently unemployed and looking for a job?: No Are you interested in more education?: No Currently or been in a relationship where the following occur: No concerns reported THRIVE Score: 0 AUDIT C Alcohol Use Questionnaire (AUDIT-C) 1. How often do you have a drink containing alcohol?: 2-4 times a month 2. How many drinks containing alcohol do you have on a typical day when you are drinking?: 1 or 2 3. How often do you have six or more drinks on one occasion?: Never Total Score: 2 Score Reviewed/Action Taken: No BERNICE-7 AMB Questionnaire BERNICE-7 Date BERNICE - 7 assessed: 11/11/23 Feeling nervous, anxious, or on edge: 0 = Not at all Not being able to stop or control worryin = Not at all Worrying too much about different things: 0 = Not at all Trouble relaxin = Not at all Being so restless that it is hard to sit still: 0 = Not at all Becoming easily annoyed or irritable: 0 = Not at all Feeling afraid as if something awful might happen: 0 = Not at all Total BERNICE-7 score (0-4 normal; 5-9 mild; 10-14 moderate; 15-21 severe): 0 Source: Developed by Drs. uBck Colvin, Kelsy Carrillo, Jose Martínez and colleagues, with an educational marciano from [employer]. Physical exam (Primary Care) Vital Signs: Oxygen Delivery Method Room Air 11/11/23 14:29 BMI result Body Mass Index 20.0 Tobacco/Smoking Status: Tobacco use Status Tobacco use date assessed 05/10/23 05/10/23 09:45 Patient Tobacco Use Status Former Tobacco user 05/10/23 09:45 Tobacco use type Cigarette 05/10/23 09:45 e-Cigarette/Vaping Use Never Used 05/10/23 09:45 Depression Screening Interpretation: Negative Thrive Assessment: Date of Thrive Assessment Date Thrive assessed 07/06/22 05/10/23 09:45 Currently or been in a relationship where the following occur: No concerns reported Const General: alert; No acute distress Eyes Conjunctivae: conjunctivae normal Resp Auscultation: clear to auscultation bilaterally Cardio Rate: regular rate Rhythm: regular rhythm GI Inspection: Yes normal to inspection Extrem General: Yes normal to inspection and No edema Assessment and Plan Assessment & Plan (1) Hypothyroidism: Code(s): E03.9 - Hypothyroidism, unspecified Qualifiers: Hypothyroidism type: acquired Qualified Code(s): E03.9 - Hypothyroidism, unspecified Plan: Continue with thyroid medication, will need blood work (2) Hypercholesterolemia: Code(s): E78.00 - Pure hypercholesterolemia, unspecified Plan: Avoid fried foods, chicken skin, eggs, butter margarine, pastries and meat. Be it pork or beef they have a lot of cholesterol LDL goal of less than 130 and triglyceride of less than 150. (3) Impaired glucose tolerance: Code(s): R73.02 - Impaired glucose tolerance (oral) Plan: Decrease the amount of carbohydrate intake, pasta, bread, rice and potatoes are all sugar and that is aside from all the sweet stuff, remember that fruits are good but they are Sweet also. (4) Generalized anxiety disorder: Comment: Declined referral for counseling Code(s): F41.1 - Generalized anxiety disorder Plan: Continue with present therapy with lorazepam as needed trazodone and amitriptyline (5) Painful arc syndrome of left shoulder: Code(s): M75.102 - Unspecified rotator cuff tear or rupture of left shoulder, not specified as traumatic Medications: Refilled lorazepam 1 mg PO BID-TID 30 days 75 tabs 1RF F41.9 - Anxiety disorder, unspecified Coding Level of Care Code Est Pt Level 4 (52433) Diagnoses Acquired hypothyroidism E03.9 Hypothyroidism type: acquired Hypercholesterolemia E78.00 Impaired glucose tolerance R73.02 Generalized anxiety disorder F41.1 Painful arc syndrome of left shoulder M75.102 Additional Codes PHQ-9 - 70919 - PHQ-9 Billing: ([id number])
== END 2023-11-11 14:51 | disposition home or self-care (01) ==
PROVIDERS: PCP Internal Medicine; Visit Provider Internal Medicine
DX: E03.9 Hypothyroidism, unspecified (principal); E78.00 Pure hypercholesterolemia, unspecified; R73.02 Impaired glucose tolerance (oral); F41.1 Generalized anxiety disorder; M75.102 Unspecified rotator cuff tear or rupture of left shoulder, not specified as traumatic
CPT/HCPCS: 99214

== ENCOUNTER 2023-12-03 07:45 | Outpatient (REF) | payer MEDICARE, SELFPAY ==
[2023-12-03 11:36] LABS: MANUAL DIFF FLAG NO
[2023-12-03 11:54] LABS: Basophils Percent Auto 0.7 % (0-2); Eosinophils Absolute Auto 0.1 X10*3/uL (0.0-0.4); Hematocrit 35.3 % (37.0-47.0); Hemoglobin 12.1 g/dl (12.0-16.0); Imm Gran Abs Auto 0.01 X10*3/uL (0.00-0.03); Imm Gran Pct Auto 0.2 % (0.0-0.4); Lymphocytes Absolute Auto 1.2 X10*3/uL (1.2-4.9); Lymphocytes Percent Auto 30.8 % (20-40); Mean Corpuscular HGB Conc 34.3 g/dl (31.0-35.0); Mean Corpuscular Hemoglobin 31.3 pg (27.0-33.0); Mean Corpuscular Volume 91.2 fL (80.0-98.0); Mean Platelet Volume 8.1 fL (9.4-12.3); Monocytes Absolute Auto 0.5 X10*3/uL (0.1-1.2); Monocytes Percent Auto 12.7 % (2-11); Neutrophils Absolute Auto 2.1 x10*3/uL (2.0-8.3); Neutrophils Percent Auto 52.6 % (45-73); Platelet Count 481 X10*3/uL (160-400); Red Blood Count 3.87 X10*6/uL (4.20-5.50); Red Cell Distribution Width 12.4 % (11.0-16.0)
[2023-12-03 12:18] LABS: Alanine Aminotransferase 18 U/L (0-31); Albumin Level 4.7 g/dL (3.5-5.0); Alkaline Phosphatase 66 U/L (39-117); Anion Gap 10 (12-20); Aspartate Amino Transferase 22 U/L (5-31); Bilirubin Total 0.5 mg/dL (0.0-1.0); Blood Urea Nitrogen 11 mg/dL (9-16); Calcium 10.1 mg/dL (8.4-10.2); Carbon Dioxide 29 mmol/L (22-29); Chloride 95 mmol/L (96-108); Cholesterol 211 mg/dL (<200); Estimated Glomerular Filt Rate > 60; Glucose Random 91 mg/dL (60-115); HDL Cholesterol 68 mg/dL (>40); LDL Cholesterol Calculated 127 mg/dL (<100); Potassium 4.2 mmol/L (3.3-5.1); Sodium 130 mmol/L (135-145); Total Protein 8.1 g/dL (6.5-8.0); Triglycerides 83 mg/dL (<150)
[2023-12-03 12:25] LABS: Free T4 (Free Thyroxine) 0.86 ng/dL (0.71-1.85); Vitamin D 25-OH Total 38.7 ng/mL (>30)
[2023-12-03 12:28] LABS: Folate 13.5 ng/mL (> or = 4.0); Vitamin B12 565 pg/mL (200-900)
== END 2023-12-03 07:46 | disposition home or self-care (01) ==
LOC: HO.WFDLDS 07:45
PROVIDERS: Visit Provider Internal Medicine
DX: I10 Essential (primary) hypertension (principal); E78.00 Pure hypercholesterolemia, unspecified
CPT/HCPCS: 36415; 80053; 80061; 82306; 82607; 82746; 84439; 84443; 85025

== ENCOUNTER 2023-12-16 08:07 | Outpatient (REF) | payer MEDICARE, SELFPAY ==
[2023-12-16 10:02] LABS: Anion Gap 12 (12-20); Blood Urea Nitrogen 9 mg/dL (9-16); Carbon Dioxide 29 mmol/L (22-29); Chloride 94 mmol/L (96-108); Estimated Glomerular Filt Rate > 60; Glucose Random 98 mg/dL (60-115); Potassium 4.1 mmol/L (3.3-5.1); Sodium 131 mmol/L (135-145)
== END 2023-12-16 08:08 | disposition home or self-care (01) ==
LOC: HO.LAB 08:07
PROVIDERS: PCP Internal Medicine; Visit Provider Internal Medicine
DX: E87.1 Hypo-osmolality and hyponatremia (principal)
CPT/HCPCS: 36415; 80048

== ENCOUNTER 2024-01-15 09:19 | Outpatient (AMB) | payer MEDICARE, SELFPAY ==
[2024-01-15 09:23] VITALS: BP 136/80; PULSE 72; O2SAT 98; BMI 20.5
--- NOTE | 2024-01-15 09:23 | A.OFFPC_ITS ---
Vital Signs 01/15/24 09:23 Height 5 ft 7 in Weight 131 lb BMI 20.5 BP 136/80 Blood Pressure Location Lt brachial Position Sitting Pulse 72 Pulse Source Pulse Oximeter Pulse Oximetry (%) 98 Oxygen Delivery Method Room Air Intake Visit Reasons: PE Intake Note: Patient here for a physical exam Report Specialist Required: No Accompanied by: Self / Same As Patient Allergies penicillin V Allergy (Unknown, Verified 01/15/24 09:24) rash Penicillins [PENICILLINS] Allergy (Unknown, Verified 01/15/24 09:24) RASH Sulfa (Sulfonamide Antibiotics) [SULFA (SULFONAMIDE ANTIBIOTICS)] Allergy (Unknown, Verified 01/15/24 09:24) RASH Medication List - Last Reconciled 01/15/24 by Raheel Bae Po, amitriptyline 10 mg PO BEDTIME PRN ascorbic acid (vitamin C) mg PO BID cholecalciferol (vitamin D3) 50 mcg PO DAILY ferrous sulfate (Feosol) 325 mg PO BID hydrochlorothiazide 25 mg PO DAILY levothyroxine 50 mcg PO QAM lorazepam 1 mg PO BID-TID 30 days sumatriptan succinate 50 mg PO Q2-4H PRN tramadol 25 mg (1/2 x 50 mg) PO BEDTIME PRN Tobacco use date assessed: 05/10/23 Fall risk assessment: No Falls in past year Last assessed Fall Risk: 01/15/24 Dental Screening Dental Screen Date: 01/15/24 Did you have a dental visit in the last 12 months?: Yes Did you have a dental problem in the last 6 months where you did not have access to dental care?: No Was dental information given to patient?: Patient has dentist HPI PE HPI Details 73-year-old female with a history of hyp othyroidism hypercholesterolemia impaired glucose tolerance generalized anxiety disorder coming in for physical exam last seen in November 11 2023. Patient is colonoscopy had August 2018 tubular adenoma mammogram is due 04/06/2022 bone density is up-to-date 06/04/2022. PATIENT ON HYDROCHLOROTHIAZIDE notes blood pressure in the afternoon is high. Also notes hyponatremia on the blood work. And so advised patient that we are going to change the blood pressure medication to lisinopril hydrochlorothiazide and will continue to monitor the blood pressure as well as get blood work 3 months after. [facility] Medical History (Updated 01/15/24 @ 09:33 by Raheel Colvin MD) Blood pressure elevated without history of HTN Left arm pain Breast cancer screening by mammogram Impacted cerumen of left ear Impacted cerumen of both ears Bronchitis Cough Laryngitis RUQ abdominal pain Anemia Neck pain Hypercholesterolemia Vitamin D deficiency Migraine Hypothyroidism Fibromyalgia Anxiety Insomnia Surgical History History of colon surgery Family History Father Hypertension Brain cancer Mother No problems noted. Brother Prostate cancer Daughter In good health Social History (Updated 01/15/24 @ 09:40 by Raheel Colvin MD) Housing: House Alcohol intake: current Alcohol intake frequency: holidays/special occasions only Comment: 2 days 2 beers Patient Tobacco Use Status: Former Tobacco user Tobacco use type: Cigarette Years Smoked: stopped 1979 e-Cigarette/Vaping Use: Never Used Second Hand Smoke Exposure: No service: No Current occupational status: retired Current occupation: left hand Cognitive needs: No Hearing needs: No Vision needs: Yes Questionnaire PHQ-9 Over the last 2 weeks, how often have you been bothered by any of the following problems? 1. Little interest or pleasure in doing things: not at all 2. Feeling down, depressed, or hopeless: not at all 3. Trouble falling or staying asleep, or sleeping too much: not at all 4. Feeling tired or having little energy: not at all 5. Poor appetite or overeating: not at all 6. Feeling bad about yourself - or that you are a failure or have let yourself or your family down: not at all 7. Trouble concentrating on things, such as reading the newspaper or watching television: not at all 8. Moving or speaking so slowly that other people could have noticed. Or the opposite - being so fidgety or restless that you have been moving around a lot more than usual: not at all 9. Thoughts that you would be better off or of hurting yourself in some way: not at all Total score: 0 Depression Screening Interpretation: Negative Depression Screening Done: Yes Source: Developed by Drs. Buck Colvin, Kelsy Carrillo, Jose Martínez and colleagues, with an educational marciano from [employer]. Thrive Questionnaire Date Thrive assessed: 01/15/24 I am a: Patient What is your living situation today?: I have a steady place to live Within the past 12 months, did the food you bought not last and you didn't have the money to get more?: Never true Within the past 12 months, did you worry whether your food would run out before you got money to buy more?: Never true Do you have trouble paying for medicines?: No Do you have trouble getting transportation to medical appointments?: No Do you have trouble paying your heating and electricity bill?: No Do you have trouble taking care of your child, family member or friend?: No Do you have trouble with day-to-day activities such as bathing, preparing meals, shopping, managing finances, etc.?: No Are you currently unemployed and looking for a job?: No Are you interested in more education?: No Please select the resources that you would like help with: None Currently or been in a relationship where the following occur: I choose not to answer THRIVE Score: 0 AUDIT C Alcohol Use Questionnaire (AUDIT-C) 1. How often do you have a drink containing alcohol?: 2-3 times a week 2. How many drinks containing alcohol do you have on a typical day when you are drinking?: 1 or 2 3. How often do you have six or more drinks on one occasion?: Never Total Score: 3 BERNICE-7 AMB Questionnaire BERNICE-7 Date BERNICE - 7 assessed: 01/15/24 Feeling nervous, anxious, or on edge: 0 = Not at all Not being able to stop or control worryin = Not at all Worrying too much about different things: 0 = Not at all Trouble relaxin = Not at all Being so restless that it is hard to sit still: 0 = Not at all Becoming easily annoyed or irritable: 0 = Not at all Feeling afraid as if something awful might happen: 0 = Not at all Total BERNICE-7 score (0-4 normal; 5-9 mild; 10-14 moderate; 15-21 severe): 0 Source: Developed by Drs. Buck Colvin, Kelsy Carrillo, Jose Martínez and colleagues, with an educational marciano from [employer]. Review of Systems Const Denies poor appetite and Denies weakness Eyes Denies no additional complaints ENT Reports Normal hearing present, Denies dizziness, Denies nasal congestion, Denies tinnitus and Denies sore throat Card Denies chest pain, Denies syncope, Denies rapid heart rate and Denies dyspnea Resp Denies cough and Denies dyspnea GI Denies change in stool character, Reports constipation, Denies diarrhea, Denies nausea and Denies vomiting Denies urinary frequency, Denies difficulty voiding and Denies dysuria Neuro Reports Normal hearing present, Denies confusion, Denies dizziness, Denies syncope and Denies weakness Psych Denies confusion Physical exam (Primary Care) Vital Signs: Last Vital Signs Pulse 72 01/15/24 09:23 BP 136/80 01/15/24 09:23 Pulse Ox 98 01/15/24 09:23 Oxygen Delivery Method Room Air 01/15/24 09:23 BMI result Body Mass Index 20.5 Tobacco/Smoking Status: Tobacco use Status Tobacco use date assessed 05/10/23 01/15/24 09:28 Patient Tobacco Use Status Former Tobacco user 01/15/24 09:28 Tobacco use type Cigarette 01/15/24 09:28 e-Cigarette/Vaping Use Never Used 01/15/24 09:28 PHQ-9: PHQ-9 Score PHQ-9: Total score 0 01/15/24 09:28 Depression Screening Interpretation: Negative Thrive Assessment: Date of Thrive Assessment Date Thrive assessed 01/15/24 01/15/24 09:28 Currently or been in a relationship where the following occur: I choose not to answer Const General: No confusion Orientation/consciousness: No confusion HENMT Head: Yes normocephalic Ears: external ears normal and TM's normal bilaterally Face and sinus: Yes normal facial exam Mouth: moist mucous membranes Throat: Yes tonsils normal Eyes Conjunctivae: conjunctivae normal Pupils: Equal, round and reactive pupils present and Pupil accommodation reflex normal Direct Ophthalmoscopy: normal light reflex Neck Neck: No lymphadenopathy Thyroid: Thyroid normal Chest Chest palpation & inspection: normal inspection of the chest Resp Effort & Inspection: normal respiratory effort and no audible wheezes Auscultation: clear to auscultation bilaterally, no crackles, no wheezes and lung sounds not diminished Cardio Rate: regular rate Rhythm: regular rhythm Peripheral pulses: radial pulses present and dorsalis pedis present GI Palpation (GI): no masses Auscultation: normal bowel sounds and normoactive bowel sounds Rectal Exam - Female: deferred Skin General skin exam: no rashes or lesions noted Rashes: no rashes Neuro General: No confusion Cranial nerves: Yes Equal, round and reactive pupils present and Yes Normal hearing present Cognition (Neuro): normal cognition Gait exam (Neuro): Normal gait present Motor exam (neuro): 5/5 motor strength present throughout Deep tendon reflexes (DTR's): Right brachioradialis reflex intensity grade: 2+, Left brachioradialis reflex intensity grade: 2+, Right patellar reflex intensity grade: 2+ and Left patellar reflex intensity grade: 2+ Extrem General: No edema Coding Level of Care Code Est Pt Prev Care >65y(07751) Diagnoses Annual physical exam Z00.00 Acquired hypothyroidism E03.9 Hypothyroidism type: acquired Hypercholesterolemia E78.00 Impaired glucose tolerance R73.02 Migraine without status migrainosus, not intractable, unspecified migraine type G43.909 Migraine type: unspecified Status migrainosus presence: without status migrainosus Intractability: not intractable Generalized anxiety disorder F41.1 Mammogram declined Z53.20 Tubular adenoma of colon D12.6 Assessment & Plan Assessment & Plan (1) Annual physical exam: Code(s): Z00.00 - Encounter for general adult medical examination without abnormal findings Category: Medical Plan: Patient is advised to eat healthy, keep well hydrated, keep active and have adequate sleep. (2) Hypothyroidism: Code(s): E03.9 - Hypothyroidism, unspecified Category: Medical Qualifiers: Hypothyroidism type: acquired Qualified Code(s): E03.9 - Hypothyroidism, unspecified Plan: Continue with the thyroid medication (3) Hypercholesterolemia: Code(s): E78.00 - Pure hypercholesterolemia, unspecified Category: Medical Plan: Avoid fried foods, chicken skin, eggs, butter margarine, pastries and meat. Be it pork or beef they have a lot of cholesterol LDL goal of less than 130 and triglyceride of less than 150. (4) Impaired glucose tolerance: Code(s): R73.02 - Impaired glucose tolerance (oral) Category: Medical Plan: Decrease the amount of carbohydrate intake, pasta, bread, rice and potatoes are all sugar and that is aside from all the sweet stuff, remember that fruits are good but they are Sweet also. (5) Migraine: Code(s): G43.909 - Migraine, unspecified, not intractable, without status migrainosus Category: Medical Qualifiers: Migraine type: unspecified Status migrainosus presence: without status migrainosus Intractability: not intractable Qualified Code(s): G43.909 - Migraine, unspecified, not intractable, without status migrainosus Plan: Continue with amitriptyline and sumatriptan p.r.n. (6) Generalized anxiety disorder: Comment: Declined referral for counseling Code(s): F41.1 - Generalized anxiety disorder Category: Medical Plan: Continue with therapy (7) Mammogram declined: Code(s): Z53.20 - Procedure and treatment not carried out because of patient's decision for unspecified reasons Category: Medical Plan: Discussed with the patient regarding mammogram (8) Tubular adenoma of colon: Code(s): D12.6 - Benign neoplasm of colon, unspecified Category: Medical Plan: Patient has been referred to Dr. Parmar and awaiting scheduling. Orders: Orders Thyroid Stimulating Hormone 3 Months E87.1 - Hypo-osmolality and hyponatremia Complete Blood Count Auto Diff 3 Months E87.1 - Hypo-osmolality and hyponatremia Comprehensive Met. Panel 3 Months E87.1 - Hypo-osmolality and hyponatremia Free T4 (Free Thyroxine) 3 Months E87.1 - Hypo-osmolality and hyponatremia Referrals Gastroenterology Referral D12.6 - Benign neoplasm of colon, unspecified Medications: New lisinopril-hydrochlorothiazide 10-12.5 mg 1 tab PO DAILY 30 tabs 3RF I10 - Essential (primary) hypertension Discontinued hydrochlorothiazide Discontinued Reason: Doctor's Order 25 mg PO DAILY 90 tabs 2RF I10 - Essential (primary) hypertension
== END 2024-01-15 09:58 | disposition home or self-care (01) ==
LOC: HO.HMCH 09:20
PROVIDERS: PCP Internal Medicine; Visit Provider Internal Medicine
DX: Z00.00 Encounter for general adult medical examination without abnormal findings (principal); E03.9 Hypothyroidism, unspecified; E78.00 Pure hypercholesterolemia, unspecified; R73.02 Impaired glucose tolerance (oral); G43.909 Migraine, unspecified, not intractable, without status migrainosus; F41.1 Generalized anxiety disorder; Z53.20 Procedure and treatment not carried out because of patient's decision for unspecified reasons; D12.6 Benign neoplasm of colon, unspecified

== ENCOUNTER → 2024-01-15 09:19 | Outpatient (BNVA) | payer MEDICARE, SELFPAY | PROVIDERS: PCP Internal Medicine; Visit Provider Internal Medicine | DX: Z00.01 Encounter for general adult medical examination with abnormal findings (principal); E03.9 Hypothyroidism, unspecified; E78.00 Pure hypercholesterolemia, unspecified; R73.02 Impaired glucose tolerance (oral); G43.909 Migraine, unspecified, not intractable, without status migrainosus; F41.1 Generalized anxiety disorder; D12.6 Benign neoplasm of colon, unspecified | CPT/HCPCS: 96127; 99397 ==

== ENCOUNTER 2024-04-16 12:16 | Outpatient (AMB) | payer MEDICARE, SELFPAY ==
[2024-04-16 12:34] VITALS: BP 128/70; PULSE 75; O2SAT 98; BMI 20.5
--- NOTE | 2024-04-16 12:34 | A.OFFPC_ITS ---
Vital Signs 04/16/24 12:34 Height 5 ft 7 in Weight 131 lb BMI 20.5 BP 128/70 Blood Pressure Location Lt brachial Position Sitting Pulse 75 Pulse Source Pulse Oximeter Pulse Oximetry (%) 98 Oxygen Delivery Method Room Air Intake Visit Reasons: 3M Follow Up Allergies penicillin V Allergy (Unknown, Verified 04/16/24 12:34) rash Penicillins [PENICILLINS] Allergy (Unknown, Verified 04/16/24 12:34) RASH Sulfa (Sulfonamide Antibiotics) [SULFA (SULFONAMIDE ANTIBIOTICS)] Allergy (Unknown, Verified 04/16/24 12:34) RASH Tobacco use date assessed: 04/16/24 Fall risk assessment: No Falls in past year Last assessed Fall Risk: 04/16/24 Dental Screening Dental Screen Date: 04/16/24 Did you have a dental visit in the last 12 months?: Yes Did you have a dental problem in the last 6 months where you did not have access to dental care?: No Was dental information given to patient?: Patient has dentist HPI 3M Follow Up HPI Details The patient is a 73-year-old female presenting with a routine wellness visit and medication review. She has a history of hypertension, which is currently managed with lisinopril and hydrochlorothiazide, although the latter is being reconsidered due to sodium imbalance. Her blood pressure readings are typically fine in the morning but higher at night, ranging from 130 to 135 mmHg. The patient also has a history of hypothyroidism. Her most recent blood test revealed a mildly elevated TSH level of 4.2, and we plan to re-evaluate this in three months. The patient is currently taking levothyroxine. Additionally, the patient has been diagnosed with migraines, managed with sumatriptan as needed. She also experiences episodes of depression for which she takes amitriptyline at bedtime, which she tolerates well. The patient noted receiving vaccinations for flu, COVID-19, and RSV. She maintains adherence to safety measures, such as wearing a mask in crowded places. Regarding laboratory results, her blood count is normal, with no signs of anemia, and her kidney and liver functions are within normal limits. [facility] Medical History (Updated 04/16/24 @ 13:10 by Raheel Colvin MD) Blood pressure elevated without history of HTN Left arm pain Breast cancer screening by mammogram Impacted cerumen of left ear Impacted cerumen of both ears Bronchitis Cough Laryngitis RUQ abdominal pain Anemia Neck pain Hypercholesterolemia Vitamin D deficiency Migraine Hypothyroidism Fibromyalgia Anxiety Insomnia Surgical History History of colon surgery Family History Father Hypertension Brain cancer Mother No problems noted. Brother Prostate cancer Daughter In good health Social History (Updated 01/15/24 @ 09:40 by Raheel Colvin MD) Housing: House Alcohol intake: current Alcohol intake frequency: holidays/special occasions only Comment: 2 days 2 beers Patient Tobacco Use Status: Former Tobacco user Tobacco use type: Cigarette Years Smoked: stopped 1979 e-Cigarette/Vaping Use: Never Used Second Hand Smoke Exposure: No service: No Current occupational status: retired Current occupation: left hand Cognitive needs: No Hearing needs: No Vision needs: Yes Questionnaire PHQ-9 Over the last 2 weeks, how often have you been bothered by any of the following problems? 1. Little interest or pleasure in doing things: not at all 2. Feeling down, depressed, or hopeless: not at all 3. Trouble falling or staying asleep, or sleeping too much: not at all 4. Feeling tired or having little energy: not at all 5. Poor appetite or overeating: not at all 6. Feeling bad about yourself - or that you are a failure or have let yourself or your family down: not at all 7. Trouble concentrating on things, such as reading the newspaper or watching television: not at all 8. Moving or speaking so slowly that other people could have noticed. Or the opposite - being so fidgety or restless that you have been moving around a lot more than usual: not at all 9. Thoughts that you would be better off or of hurting yourself in some way: not at all Total score: 0 Depression Screening Interpretation: Negative Depression Screening Done: Yes Source: Developed by Drs. Buck Colvin, Kelsy Carrillo, Jose Martínez and colleagues, with an educational marciano from [employer]. Thrive Questionnaire Date Thrive assessed: 04/16/24 I am a: Patient What is your living situation today?: I have a steady place to live Within the past 12 months, did the food you bought not last and you didn't have the money to get more?: Never true Within the past 12 months, did you worry whether your food would run out before you got money to buy more?: Never true Do you have trouble paying for medicines?: No Do you have trouble getting transportation to medical appointments?: No Do you have trouble paying your heating and electricity bill?: No Do you have trouble taking care of your child, family member or friend?: No Do you have trouble with day-to-day activities such as bathing, preparing meals, shopping, managing finances, etc.?: No Are you currently unemployed and looking for a job?: No Are you interested in more education?: No Please select the resources that you would like help with: None Currently or been in a relationship where the following occur: I choose not to answer THRIVE Score: 0 AUDIT C Alcohol Use Questionnaire (AUDIT-C) 2. How many drinks containing alcohol do you have on a typical day when you are drinking?: 1 or 2 3. How often do you have six or more drinks on one occasion?: Never Total Score: 0 BERNICE-7 AMB Questionnaire BERNICE-7 Date BERNICE - 7 assessed: 04/16/24 Feeling nervous, anxious, or on edge: 0 = Not at all Not being able to stop or control worryin = Not at all Worrying too much about different things: 0 = Not at all Trouble relaxin = Not at all Being so restless that it is hard to sit still: 0 = Not at all Becoming easily annoyed or irritable: 0 = Not at all Feeling afraid as if something awful might happen: 0 = Not at all Total BERNICE-7 score (0-4 normal; 5-9 mild; 10-14 moderate; 15-21 severe): 0 Source: Developed by Drs. Buck Colvin, Kelsy Carrillo, Jose Martínez and colleagues, with an educational marciano from [employer]. Physical exam (Primary Care) Vital Signs: Last Vital Signs Pulse 75 04/16/24 12:34 BP 128/70 04/16/24 12:34 Pulse Ox 98 04/16/24 12:34 Oxygen Delivery Method Room Air 04/16/24 12:34 BMI result Body Mass Index 20.5 Tobacco/Smoking Status: Tobacco use Status Tobacco use date assessed 04/16/24 04/16/24 12:38 Patient Tobacco Use Status Former Tobacco user 04/16/24 12:38 Tobacco use type Cigarette 04/16/24 12:38 e-Cigarette/Vaping Use Never Used 04/16/24 12:38 PHQ-9: PHQ-9 Score PHQ-9: Total score 0 04/16/24 13:10 Depression Screening Interpretation: Negative Thrive Assessment: Date of Thrive Assessment Date Thrive assessed 04/16/24 04/16/24 12:38 Currently or been in a relationship where the following occur: I choose not to answer Const General: alert; No acute distress Eyes Conjunctivae: conjunctivae normal Resp Auscultation: clear to auscultation bilaterally Cardio Rate: regular rate Rhythm: regular rhythm GI Inspection: Yes normal to inspection Extrem General: Yes normal to inspection and No edema Coding Level of Care Code Est Pt Level 4 (50769) Diagnoses Hyponatremia E87.1 Tubular adenoma of colon D12.6 Hypertension I10 TSH elevation R79.89 Acquired hypothyroidism E03.9 Hypothyroidism type: acquired Hypercholesterolemia E78.00 Insomnia G47.00 Assessment & Plan Assessment & Plan (1) Hyponatremia: Code(s): E87.1 - Hypo-osmolality and hyponatremia Category: Medical (2) Tubular adenoma of colon: Code(s): D12.6 - Benign neoplasm of colon, unspecified Category: Medical (3) Hypertension: Code(s): I10 - Essential (primary) hypertension Category: Medical (4) TSH elevation: Code(s): R79.89 - Other specified abnormal findings of blood chemistry Category: Medical (5) Hypothyroidism: Code(s): E03.9 - Hypothyroidism, unspecified Category: Medical Qualifiers: Hypothyroidism type: acquired Qualified Code(s): E03.9 - Hypothyroidism, unspecified (6) Hypercholesterolemia: Code(s): E78.00 - Pure hypercholesterolemia, unspecified Category: Medical (7) Insomnia: Code(s): G47.00 - Insomnia, unspecified Category: Medical Plan - Discontinue hydrochlorothiazide due to sodium level concerns, and monitor blood pressure with potential adjustments to lisinopril dosage as necessary. - Reassess thyroid function with TSH levels in three months; no immediate changes to levothyroxine dosage are necessary given the current mild elevation. - Continue sumatriptan as required for migraine management. - Maintain current amitriptyline dosage for depression management. - Reinforce adherence to flu, COVID-19, and RSV preventive measures, including vaccination and mask-wearing in crowded settings. - Plan to follow up with regular blood pressure checks to monitor hypertension control. - The patient is advised to maintain hydration levels and assess symptoms to ensure sodium balance does not worsen. Orders: Orders Comprehensive Met. Panel 3 Months - Other specified abnormal findings of blood chemistry Thyroid Stimulating Hormone 3 Months R7 - Other specified abnormal findings of blood chemistry Free T4 (Free Thyroxine) 3 Months R7 - Other specified abnormal findings of blood chemistry Medications: New lisinopril 20 mg PO DAILY 30 tabs 4RF I10 - Essential (primary) hypertension Refilled lorazepam 1 mg PO BID-TID 75 tabs 1RF 30 days F41.9 - Anxiety disorder, unspecified Discontinued lisinopril-hydrochlorothiazide 10-12.5 mg Discontinued Reason: Doctor's Order 1 tab PO DAILY 30 tabs 3RF I10 - Essential (primary) hypertension
== END 2024-04-16 13:24 | disposition home or self-care (01) ==
PROVIDERS: PCP Internal Medicine; Visit Provider Internal Medicine
DX: E87.1 Hypo-osmolality and hyponatremia (principal); D12.6 Benign neoplasm of colon, unspecified; I10 Essential (primary) hypertension; R79.89 Other specified abnormal findings of blood chemistry; E03.9 Hypothyroidism, unspecified; E78.00 Pure hypercholesterolemia, unspecified; G47.00 Insomnia, unspecified

== ENCOUNTER → 2024-04-16 12:16 | Outpatient (BNVA) | payer MEDICARE, SELFPAY | PROVIDERS: PCP Internal Medicine; Visit Provider Internal Medicine | DX: E87.1 Hypo-osmolality and hyponatremia (principal); D12.6 Benign neoplasm of colon, unspecified; I10 Essential (primary) hypertension; R79.89 Other specified abnormal findings of blood chemistry; E03.9 Hypothyroidism, unspecified; E78.00 Pure hypercholesterolemia, unspecified; G47.00 Insomnia, unspecified | CPT/HCPCS: 99212 ==

== ENCOUNTER 2024-05-01 08:04 | Day surgery (SDC) | payer MEDICARE, SELFPAY ==
[2024-04-29 13:27] VITALS: BMI 19.6
--- NOTE | 2024-04-30 10:23 | P.CONAN_ITS ---
HPI - Anesthesia Eval Consult details Narrative: 74yo F for Colonoscopy Hyponatremia - PCP d/c'd hctz at 03/2024 office visit d/t Na range 130-135. PMFSH Active Problems Active Problems: All Active Problems TSH elevation (Acute) Hyponatremia (Acute) Left hip pain (Acute) Mammogram declined (Acute) Tubular adenoma of colon (Acute) Hypertension (Acute) Chronic pain syndrome (Acute) Rotator cuff tear arthropathy of left shoulder (Acute) Cervical radicular pain (Acute) Age-related osteoporosis without current pathological fracture (Acute) Painful arc syndrome of left shoulder (Acute) Hyperkalemia (Acute) Generalized anxiety disorder (Acute) Annual physical exam (Acute) Renal cyst, left (Acute) Osteopenia (Acute) Impaired glucose tolerance (Acute) Migraine (Acute) Hypercholesterolemia (Acute) Hypothyroidism (Acute) Insomnia (Acute) Past Medical History Medical History (Updated 04/29/24 @ 13:17 by Sadie Chaney RN) Anxiety Elevated blood sugar Blood pressure elevated without history of HTN Left arm pain Breast cancer screening by mammogram Impacted cerumen of left ear Impacted cerumen of both ears Bronchitis Cough Laryngitis RUQ abdominal pain Anemia Neck pain Hypercholesterolemia Vitamin D deficiency Migraine Hypothyroidism Fibromyalgia Anxiety Insomnia Family History Family History Father Hypertension Brain cancer Mother No problems noted. Brother Prostate cancer Daughter In good health Surgical History Surgical History History of colon surgery Social History Social History (Updated 01/15/24 @ 09:40 by Raheel Colvin MD) Housing: House Alcohol intake: current Alcohol intake frequency: holidays/special occasions on ly Comment: 2 days 2 beers Patient Tobacco Use Status: Former Tobacco user Tobacco use type: Cigarette Years Smoked: stopped 1979 e-Cigarette/Vaping Use: Never Used Second Hand Smoke Exposure: No service: No Current occupational status: retired Current occupation: left hand Cognitive needs: No Hearing needs: No Vision needs: Yes Meds Allergies Allergy/AdvReac Type Severity Reaction Status Date / Time penicillin V Allergy Unknown rash Verified 04/16/24 12:34 Penicillins [PENICILLINS] Allergy Unknown RASH Verified 04/16/24 12:34 Sulfa (Sulfonamide Allergy Unknown RASH Verified 04/16/24 12:34 Antibiotics) [SULFA (SULFONAMIDE ANTIBIOTICS)] Home Medications ?Medication ?Instructions ?Recorded ?Confirmed ?Last Taken ?Type hydrochlorothiazide 25 mg tablet 25 mg PO DAILY 04/29/24 04/29/24 Unknown History Exam Height,Weight and Vital Signs: Height 5 ft 7 in Weight 56.699 kg Assessment and Plan Assessment Anesthesia Assessment: Chart Reviewed
[2024-05-01 08:42] VITALS: BP 137/75; PULSE 98; RESP 16; TEMP 36.7; O2SAT 100
[2024-05-01] MEDS: Lactated Ringers 1,000 ML 100 ML IVCONT (08:56)
--- NOTE | 2024-05-01 09:59 | MHC.SHP ---
Pre-Procedural Eval Section A - 24 Hr Update-Section A only Date of Service: 05/01/24 The patient is an INPATIENT: No Changes since office visit: No Cold of Flu in the past 2 weeks, No New Medical Problems, No Changes in Medication and No Patient answered all questions The patient has been examined within 24 hours of the surgical procedure. The History & Physical has been completed within 30 days and I have reviewed it.: Yes Section B - Complete if H&P > 30 days Chief Complaint: Encounter for screening for malignant neoplasm of Allergies: Allergies Allergy/AdvReac Type Severity Reaction Status Date / Time penicillin V Allergy Unknown rash Verified 04/16/24 12:34 Penicillins [PENICILLINS] Allergy Unknown RASH Verified 04/16/24 12:34 Sulfa (Sulfonamide Allergy Unknown RASH Verified 04/16/24 12:34 Antibiotics) [SULFA (SULFONAMIDE ANTIBIOTICS)] Plan I have reviewed the history and physical and performed a pertinent physical examination on my patient. No changes have occurred unless specified. Time Spent With Patient Time: Total time managing care of this patient today ____ minutes.
--- NOTE | 2024-05-01 10:28 | P.CONAN_ITS ---
[facility] Active Problems Active Problems: All Active Problems TSH elevation (Acute) Hyponatremia (Acute) Left hip pain (Acute) Mammogram declined (Acute) Tubular adenoma of colon (Acute) Hypertension (Acute) Chronic pain syndrome (Acute) Rotator cuff tear arthropathy of left shoulder (Acute) Cervical radicular pain (Acute) Age-related osteoporosis without current pathological fracture (Acute) Painful arc syndrome of left shoulder (Acute) Hyperkalemia (Acute) Generalized anxiety disorder (Acute) Annual physical exam (Acute) Renal cyst, left (Acute) Osteopenia (Acute) Impaired glucose tolerance (Acute) Migraine (Acute) Hypercholesterolemia (Acute) Hypothyroidism (Acute) Insomnia (Acute) Past Medical History Medical History Anxiety Elevated blood sugar Blood pressure elevated without history of HTN Left arm pain Breast cancer screening by mammogram Impacted cerumen of left ear Impacted cerumen of both ears Bronchitis Cough Laryngitis RUQ abdominal pain Anemia Neck pain Hypercholesterolemia Vitamin D deficiency Migraine Hypothyroidism Fibromyalgia Anxiety Insomnia Patient : No Family History Family History Father Hypertension Brain cancer Mother No problems noted. Brother Prostate cancer Daughter In good health Family history of problems with anesthesia: No Surgical History Surgical History History of colon surgery History of Problems with Anesthesia: No Social History Social History Housing: House Are you a primary child care group leader to a significant other at home: No Do you presently have visiting nurse or other home services: No Alcohol intake: current Alcohol intake frequency: holidays/special occasions only Comment: 2 days 2 beers Patient Tobacco Use Status: Former Tobacco user Tobacco use type: Cigarette Years Smoked: stopped 1979 e-Cigarette/Vaping Use: Never Used Second Hand Smoke Exposure: No Use of substances other than those prescribed or required for medical reasons: No Have you been hit, kicked, punched, or otherwise hurt by someone within the past year? If so, by whom?: No Are you DNR?: No Advance Directives: No Advance Directives Information Provided: Yes Recently lost weight without trying: No service: No Current occupational status: retired Current occupation: left hand Cognitive needs: No Hearing needs: No Vision needs: Yes Meds Allergies Allergy/AdvReac Type Severity Reaction Status Date / Time penicillin V Allergy Unknown rash Verified 04/16/24 12:34 Penicillins [PENICILLINS] Allergy Unknown RASH Verified 04/16/24 12:34 Sulfa (Sulfonamide Allergy Unknown RASH Verified 04/16/24 12:34 Antibiotics) [SULFA (SULFONAMIDE ANTIBIOTICS)] Active Medications: Current Medications Lactated Ringer's (Lr) 1,000 mls @ 100 mls/hr IVCONT .Q10H MARITZA Last Admin: 05/01/24 08:56 Dose: 100 mls/hr Home Medications ?Medication ?Instructions ?Recorded ?Confirmed ?Last Taken ?Type hydrochlorothiazide 25 mg tablet 25 mg PO DAILY 04/29/24 04/29/24 Unknown History Exam Height,Weight and Vital Signs: Height 5 ft 7 in Weight 56.699 kg Last Vital Signs Temp 98.0 F 05/01/24 08:42 Pulse 98 05/01/24 08:42 Resp 16 05/01/24 08:42 BP 137/75 05/01/24 08:42 Pulse Ox 100 05/01/24 08:42 O2 Del Method Room Air 05/01/24 08:42 Airway Mallampati Class: III TM Dist: >3cm Neck ROM: Full Heart: RRR Lungs: CTA Assessment and Plan Assessment Anesthesia Assessment: Anesthesia Plan Discussed and Chart Reviewed Final Anesthetic Review Family History of Problems with Anesthesia: No History of Problems with Anesthesia: No NPO: Yes ASA Class: III Final Preanesthetic Review: Meds/Allgs Chart Reviewed, Consent Obtained/Reviewed and Anes Risks/Benef Reviewed Patient Risk: Low Procedure Risk: Low Anesthetic Plan Anesthetic Plan: MAC: Disposition: Standard PACU
[2024-05-01 11:26] VITALS: BP 91/49; PULSE 69; RESP 16; TEMP 36.1; O2SAT 96
--- NOTE | 2024-05-01 11:48 | OP_ITS ---
DATE OF SERVICE: 05/01/2024 SURGEON: Mack Parmar MD INDICATIONS: Colon cancer screening. PREOPERATIVE DIAGNOSIS: POSTOPERATIVE DIAGNOSIS: PROCEDURE PERFORMED: Colonoscopy to the cecum. ESTIMATED BLOOD LOSS: COMPLICATIONS: ANESTHESIA: Monitored anesthesia care. ASSISTANTS: SPECIMENS: DESCRIPTION OF PROCEDURE: A history and physical was performed. The risks and benefits of the procedure were explained to the patient and informed consent was obtained. The patient was placed in the left lateral decubitus position. A digital rectal exam was performed and was found to be normal. The Olympus pediatric video colonoscope was introduced to the rectum and advanced to the cecum. The cecum was identified by transillumination, palpation, and identification of ileocecal valve. Examination was performed and the scope was removed. She tolerated the procedure well and was returned to recovery area in stable condition. FINDINGS: The terminal ileum was not examined. The visualized colonic mucosa was normal. The quality of the prep was good. No polyps were identified. There was mild sigmoid diverticulosis. Retroflexed examination showed some moderate-sized internal hemorrhoids. IMPRESSION: Normal colonoscopy. RECOMMENDATIONS: 1. Follow up as needed. 2. Repeat colonoscopy is recommended in 10 years for average-risk individuals. This is optional based on age. MD REGINO Mckeon/MARTAL / [phone]
== END 2024-05-01 13:05 | disposition home or self-care (01) ==
PROVIDERS: PCP Internal Medicine; Visit Provider Internal Medicine Gastroenterology
PROC: 0DJD8ZZ Inspection of Lower Intestinal Tract, Via Natural or Artificial Opening Endoscopic (ICD-10-PCS; CPT 45378; principal; 2024-05-01 10:40)
DX: Z12.11 Encounter for screening for malignant neoplasm of colon (principal); Z86.0101 Personal history of adenomatous and serrated colon polyps; K57.30 Diverticulosis of large intestine without perforation or abscess without bleeding; K64.8 Other hemorrhoids; Z90.49 Acquired absence of other specified parts of digestive tract; I10 Essential (primary) hypertension; E78.5 Hyperlipidemia, unspecified; R73.9 Hyperglycemia, unspecified; E03.9 Hypothyroidism, unspecified; F41.9 Anxiety disorder, unspecified; M85.80 Other specified disorders of bone density and structure, unspecified site; Z79.899 Other long term (current) drug therapy; Z88.0 Allergy status to penicillin; Z88.2 Allergy status to sulfonamides; Z98.890 Other specified postprocedural states
CPT/HCPCS: G0105; J2003; J2704

== ENCOUNTER 2024-07-08 08:42 | Outpatient (REF) | payer MEDICARE, SELFPAY ==
--- OUTSIDE RECORDS SUMMARY | 2024-07-08 09:09 | XMS_ITS ---
Author Organization [facility] Address [address] [place] [phone] Care Team Providers Care Director Workforce Management Name Role Phone Raheel Colvin MD Primary Care Provider Mack Dockery Jr Unavailable Allergies Allergen (clinical drug ingredient) Drug/Non Drug Allergy documented on EMR Reaction Allergy Type Onset Date Status Penicillin Unknown Drug Allergy Active Substance with sulfonamide structure and antibacterial mechanism of action (substance) Sulfa Antibiotics Unknown Drug Allergy Active REASON FOR VISIT Patient presents today for a discuss colonoscopy Medications Medication SIG (Take, Route, Frequency, Duration) Notes Start Date End Date Status LORazepam 1 MG Oral for 25 Act africa Levothyroxine Sodium 50 MCG TAKE 1 TABLE T BY MOUTH EVERY MORNING Oral for 90 Active Lisinopril-hydroCHLOROthiaz margaret 10-12.5 MG Oral for 30 Active SUMAtriptan Succinate 50 MG TAKE 1 TABLE T BY MOUTH EVERY 2 TO 4 HOURS NEEDED FOR MIGRAINE HEADACHE. DO NOT EXCEED 4 DOSES PER 24 HOURS Oral for 7 [id number],Unavai lable Active Lisinopril 20 MG Oral for 90 A ctive MiraLax (colon prep) 17 GM/SCOOP mixed with Gatorade or Crystal Light Orally begin at 5:00 p.m. the day before the procedure for 1 day 04/20/2024 Active traMADol HCl 50 MG Oral for 30 as needed Active hydroCHLOROthiazide 25 MG TAKE 1 TABLET BY MOUTH DAILY Oral for 90 I10,Unavailab le Active Social History Tobacco Use: Social History Observation Description Date Details (start date - stop date) Never Smoker NA - NA Tobacco Use/Smoking Question Answer Notes Patient is a nonsmoker Alcohol Screen Question Answer Notes Did you have a drink contain ing alcohol in the past year? Yes How often did you have a dri nk containing alcohol in the past year? 2 to 4 times a month (2 points) How many drinks did you have on a typical day when you were drinking in the past year? 1 or 2 drinks (0 point) How often did you have 6 or more drinks on one occasion in the past year? 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 (Z79.899) Active confirmed Vital Signs Temperature 97.5 degrees Fahrenheit 04/20/19 25 Blood pressure systolic 000 mm Hg 04/20/19 25 Blood pressure diastolic 00 mm Hg 025 Height 5 ft 7 in in 04/20/2024 Weight 125 lbs 04/20/2024 BMI 19.58 kg/m2 04/20/2024 Encounters Encounter Location Date Provider Diagnosis [facility] [address] [place] [address] 04/20/2024 Mack Parmar Jr Colon cancer screening Z12.11 ; Encounter for other preprocedural examination Z01.818 ; Personal history of colonic polyps Z86.0100 and termite control servicer current use of diuretic Z79.899 Assessments Encounter Date Diagnosis (ICD Code) Assessment Notes Treatment Notes Treatment Clinical Notes Section Notes 04/20/2024 Colon cancer screening (ICD-10 - Z12.11) Colonoscopy material was printed We discussed colonoscopy today. We discussed her symptoms as of the procedure today. She understands these and agrees to proceed. She is advised to stop hydrochlorothiazide the day before the procedure. 04/20/2024 Encounter for other preprocedural examination (ICD-10 - Z01.818) We discussed colonoscopy today. We discussed her symptoms as of the procedure today. She understands these and agrees to proceed. She is advised to stop hydrochlorothiazide the day before the procedure. 04/20/2024 Personal history of colonic polyps (ICD-10 - Z86.0100) We discussed colonoscopy today. We discussed her symptoms as of the procedure today. She understands these and agrees to proceed. She is advised to stop hydrochlorothiazide the day before the procedure. 04/20/2024 termite control servicer current use of diuretic (ICD-10 - Z79.899) We discussed colonoscopy today. We discussed her symptoms as of the procedure today. She understands these and agrees to proceed. She is advised to stop hydrochlorothiazide the day before the procedure. Plan Of Treatment Medication Medication Name Sig Start Date Stop Date Notes MiraLax (colon prep) 17 GM/SCOOP mixed with Gatorade or Crystal Light Orally begin at 5:00 p.m. the day before the procedure for 1 day 04/20/2024 Treatment Notes Assessment Notes Colon cancer screening Colonoscopy mater ial was printed Future Test Test Name Order Date COLONOSCOPY 04/20/2024 Next Appt Details Follow Up: 1 Year, Samantha soto on: Progress Notes * GERARDO RAYODOB:1950 (74 yo F)Acc No.[id number]:04/20/2024 Progress Notes Patient:?GERARDO RAYO Provider:?Mack Parmar MD :1950???Age:73 Y???Sex:Female D ate:04/20/2024 Address:[address] [place], [place] [phone] Pcp:Raheel Colvin MD Subjective: * Chief Complaints: * ???1. Patient presents today for a discuss colonoscopy. * HPI: ???New symptom(s):? The patient is a 73-year-old woman seen today in consultation. She has a history of colon polyps and underwent surgical resection for polyp that could not be removed endoscopically approximately 5-6 years ago. Records are not available but will be obtained. She has no complaints of rectal bleeding, abdominal or rectal pain, or change in her bowel habits. Weight and appetite have been stable. * ROS:?General/Constitutional:?Change in appetite?denies.?Fatigue?denies.?ENT:?Patient denies?difficulty swallowing.?Respiratory:?Patient denies?shortness of breath.?Cardiovascular:?Patient denies?chest pain.?Gastrointestinal:?Comments?See HPI for details.?Genitourinary:?Difficulty urinating?denies.?Incontinence?denies.?Musculoskeletal:?Patient denies?muscle aches.?Skin:?Patient denies?pruritis.?Neurologic:?Patient denies?low back pain.?Psychiatric:?Patient denies?mental or physical abuse.? * Medical History:?Hypothyroid ism, Hypertension, Hyperlipidemia, Elevated blood sugar, Osteopenia, Anxiety. * Surgical History:?Colon rese ction for polyp . * Family History:?Father: dece ased, diagnosed with HTN (hypertension).?Mother: .? No family history of colon cancer or liver cancer. * Social History:?Tobacco Use:?Tobacco Use/Smoking?Patient is a?nonsmoker.?Drugs/Alcohol:?Alcohol Screen?Did you have a drink containing alcohol in the past year??Yes,?How often did you have a drink containing alcohol in the past year??2 to 4 times a month (2 points),?How many drinks did you have on a typical day when you were drinking in the past year??1 or 2 drinks (0 point),?How often did you have 6 or more drinks on one occasion in the past year??Never (0 point),?Points?2,?Interpretation?Negative.?Miscellaneous:?Marital status: single. Occupation: retired. * Medications:?Taking LORazepa m 1 MG Tablet Oral , Taking Lisinopril 20 MG Tablet Oral , Taking SUMAtriptan Succinate 50 MG Tablet TAKE 1 TABLET BY MOUTH EVERY 2 TO 4 HOURS NEEDED FOR MIGRAINE HEADACHE. DO NOT EXCEED 4 DOSES PER 24 HOURS Oral , Notes: [id number],Unavailable, Taking Lisinopril-hydroCHLOROthiazide 10-12.5 MG Tablet Oral , Taking Levothyroxine Sodium 50 MCG Tablet TAKE 1 TABLET BY MOUTH EVERY MORNING Oral , Taking hydroCHLOROthiazide 25 MG Tablet TAKE 1 TABLET BY MOUTH DAILY Oral , Notes: I10,Unavailable, Taking traMADol HCl 50 MG Tablet Oral , Notes: as needed, Medication List reviewed and reconciled with the patient * Allergies:?Sulfa Antibiotics , Penicillin. Objective: * Vitals:?Wt: 125 lbs, Ht: 5 f t 7 in, BMI:19.58 Index, BP: 000/00 mm Hg, Temp: 97.5. * Examination: ???General Examination: ?GENERAL APPEARANCE:?in no acute distress.?HEAD:?normocephalic.?EYES:?sclera non-icteric.?ORAL CAVITY:?mucosa moist.?NECK/THYROID:?no lymphadenopathy.?SKIN:?anicteric.?HEART:?S1, S2 normal, no murmurs.?LUNGS:?clear to auscultation bilaterally.?CHEST:?normal shape and expansion.?ABDOMEN:?soft, nontender, nondistended, bowel sounds present, no organomegaly .?EXTREMITIES:?no clubbing, cyanosis, or edema.?PSYCH:?cognitive function intact.? Assessment: * Assessment: 1.?Encounter for other prepr ocedural examination - Z01.818 (Primary)?2.?Colon cancer screening - Z12.11?3.?Personal history of colonic polyps - Z86.0100?4.?correction current use of diuretic - Z79.899? We discussed colonoscopy tod ay. We discussed her symptoms as of the procedure today. She understands these and agrees to proceed. She is advised to stop hydrochlorothiazide the day before the procedure. Plan: * Treatment: Notes: Colonoscopy material was printed??2.?Personal history of colonic polyps?Procedure: COLONOSCOPY (Ordered for 04/20/2024)* sched for 05/01/24 at 12:30 p mmacmiralax * Procedure Codes:?3017F COLOR ECTAL CA SCREEN DOC REV, G9903 Pt scrn tbco id as non user, G9744 PATIENT NOT ELIG D/T ACTIVE DX HTN * Preventive Medicine:? ??Urinary Incontinence:?Urinary Incontinence?Assessment:?Absent,?Plan of care documented:?No, reason not specified.? ??Screenings:?Fall Risk Screening?Fall Risk Assessment:?No falls in the past year,?Screening:?No falls in the past year,?Assessment:?Not performed, no reason specified,?Plan of Care:?Not documented, no reason specified.? * Follow Up:?1 Year, prn * * Sign off status: Completed true * Provider:?Mack Parmar MD Date:?0 04/20/2024 Generated for Elton diaz/Karoline/eTransmitting on:?07/08/2024 09:08 AM EDT History and Physical Notes * HPI (History of Present Illness) Category Sub-Category Detail Notes Category Not es New symptom(s) The patient i s a 73-year-old woman seen today in consultation. She has a history of colon polyps and underwent surgical resection for polyp that could not be removed endoscopically approximately 5-6 years ago. Records are not available but will be obtained. She has no complaints of rectal bleeding, abdominal or rectal pain, or change in her bowel habits. Weight and appetite have been stable. Examination Category Sub-Category Detail Notes Category Not es General Examination GENERAL APPEARANCE: in no acute di stress HEAD: normocephalic EYES: sclera non-icteric NECK/THYROID: no lymphadenopathy HEART: S1, S2 normal, no mu rmurs CHEST: normal shape and exp ansion LUNGS: clear to auscultatio n bilaterally ABDOMEN: soft, nontender, non distended, bowel sounds present, no organomegaly SKIN: anicteric EXTREMITIES: no clubbing, cyanosi s, or edema PSYCH: cognitive function i ntact ORAL CAVITY: mucosa moist
--- OUTSIDE RECORDS SUMMARY | 2024-07-08 09:09 | XMS_ITS ---
Author Organization [facility] Address [address] [place] [id number] Care Team Providers Care Counter Caser Name Role Phone Raheel Colvin MD Primary Care Provider Mack Dockery Jr Unavailable REASON FOR VISIT screening Encounters Encounter Location Date Provider Diagnosis [facility] [place] [facility] [address] [place] [id number] 05/01/2024 Mack Parmar Jr Colon cancer screening Z12.11 Assessments Encounter Date Diagnosis (ICD Code) Assessment Notes Treatment Notes Treatment Clinical Notes Section Notes 05/01/2024 Colon cancer screening (ICD-10 - Z12.11) Plan Of Treatment No Information Progress Notes * GERARDO RAYODOB:1950 (74 yo F)Acc No.[id number]:05/01/2024 COLON WITH MAC Patient:?GERARDO RAYO Provider:?Mack Parmar MD :1950???Age:74 Y???Sex:Female D ate:05/01/2024 Address:[address] [place], [place] [id number] Pcp:Raheel Colvin MD Subjective: * Chief Complaints: * ???1. Screening. * Medical History:? Objective: * Vitals:? Assessment: * Assessment: 1.?Colon cancer screening - Z12.11 (Primary)??? Plan: * Treatment: * Procedure Codes:?64387 DIAGN OSTIC COLONOSCOPY, 0529F INTRVL 3+YRS PTS CLNSCP DOCD, 0528F RCMND FLW-UP 10 YRS DOCD * * The named appointment provid er may or may not be the originator of this progress note, and it is not deemed complete until electronically signed by the appointment provider. Sign off status: Pending * Provider:?Mack Parmar MD Date:?0 05/01/2024 Generated for Elton diaz/Karoline/Alicia on:?07/08/2024 09:08 AM EDT
--- OUTSIDE RECORDS SUMMARY | 2024-07-08 09:09 | XMS_ITS | Patient Health Record ---
Author Organization [facility] Address [address] [place] [address] Care Team Providers Care Echocardiography Technologist Name Role Phone Po Raheel ALMEIDA Primary Care Provider Mack Dockery Jr Unavailable Allergies Allergen (clinical drug ingredient) Drug/Non Drug Allergy documented on EMR Reaction Allergy Type Onset Date Status Penicillin Unknown Drug Allergy Active Substance with sulfonamide structure and antibacterial mechanism of action (substance) Sulfa Antibiotics Unknown Drug Allergy Active Reason For Referral No Information Medications Medication SIG (Take, Route, Frequency, Duration) [...] DOSES PER 24 HOURS Oral for 7 [id number],Unavai lable Active Lisinopril 20 MG Oral for 90 A ctive MiraLax (colon prep) 17 GM/SCOOP mixed with Gatorade or Crystal Light Orally begin at 5:00 p.m. the day before the procedure for 1 day 04/20/2024 Active traMADol HCl 50 MG Oral for 30 as needed Active hydroCHLOROthiazide 25 MG TAKE 1 TABLET BY MOUTH DAILY Oral for 90 I10,Unavailab le Active Immunizations Vaccine Route Administration Date Status Comme nts Influenza Unknown 01/07/2024 Administered Social History Tobacco Use: Social History Observation [...] Problem Status W/U Status Risk Notes Problem 720438078 Colon cancer screening (Z12.11) Active confirmed Problem 222377164 Encounter for other preprocedural examination (Z01.818) Active confirmed Problem 16813342372200795 [facility] current use of diuretic (Z79.899) Active confirmed Problem 540175241 Personal history of colonic polyps (Z86.0100) Active confirmed Vital Signs Temperature 97.5 degrees Fahrenheit 04/20/2024 Blood pressure diastolic 00 mm Hg 04/20/2024 Height 5 ft 7 in in 04/20/2024 Blood pressure systolic 000 mm Hg 04/20/2024 Weight 125 lbs 04/20/2024 BMI 19.58 kg/m2 04/20/2024 Encounters Encounter Location Date Provider Diagnosis [facility] [place] [address] [place] [phone] 05/01/2024 Mack Parmar Jr Colon cancer screening Z12.11 [facility] [address] [place] [address] 04/20/2024 Mack Parmar Jr Colon cancer screening Z12.11 ; Encounter for other preprocedural examination Z01.818 ; Personal history of colonic polyps Z86.0100 and [facility] current use of diuretic Z79.899 Assessments Encounter Date Diagnosis (ICD Code) Assessment Notes Treatment Notes Treatment Clinical Notes Section Notes 05/01/2024 Colon cancer screening (ICD-10 - Z12.11) 04/20/2024 Colon cancer screening (ICD-10 - Z12.11) [...] hydrochlorothiazide the day before the procedure. 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 We discussed her symptoms as of the procedure today. She understands these and agrees to proceed. She is advised to stop hydrochlorothiazide the day before the procedure. Plan Of Treatment Future Test Test Name Order Date COLONOSCOPY 04/20/2024 Insurance Providers Payer Name Payer Address Payer Phone Subscriber Number Group Number Insured Name Patient Relationship to Insured Coverage Start Date Coverage End Date [facility] [address] [address] [place] [address] [id number] GERARDO RAYO Self - patient is the insured Medical (General) History Medical History History ICD Code Hypothyroidism Hypertension Hyperlipidemia Elevated blood sugar Osteopenia Anxiety Surgical History Surgery Date(Month/Year) Colon resection for polyp
[2024-07-08 10:43] LABS: Alanine Aminotransferase 20 U/L (0-31); Albumin Level 4.5 g/dL (3.5-5.0); Alkaline Phosphatase 56 U/L (39-117); Anion Gap 10 (12-20); Aspartate Amino Transferase 24 U/L (5-31); Bilirubin Total 0.5 mg/dL (0.0-1.0); Blood Urea Nitrogen 11 mg/dL (9-16); Calcium 9.1 mg/dL (8.4-10.2); Carbon Dioxide 27 mmol/L (22-29); Chloride 97 mmol/L (96-108); Estimated Glomerular Filt Rate > 60; Glucose Random 96 mg/dL (60-115); Potassium 4.3 mmol/L (3.3-5.1); Sodium 130 mmol/L (135-145); Total Protein 7.2 g/dL (6.5-8.0)
[2024-07-08 10:48] LABS: Free T4 (Free Thyroxine) 0.94 ng/dL (0.71-1.85); Thyroid Stimulating Hormone 2.48 uIU/mL (0.32-4.0)
== END 2024-07-08 08:43 | disposition home or self-care (01) ==
LOC: HO.LAB 08:42
PROVIDERS: PCP Internal Medicine; Visit Provider Internal Medicine
DX: R79.89 Other specified abnormal findings of blood chemistry (principal)
CPT/HCPCS: 36415; 80053; 84439; 84443

== ENCOUNTER 2024-07-15 10:36 | Outpatient (AMB) | payer MEDICARE, SELFPAY ==
[2024-07-15 10:39] VITALS: BP 120/70; PULSE 74; TEMP 36.2; O2SAT 96; BMI 20.4
--- NOTE | 2024-07-15 10:39 | MHC.PC.OV ---
Vital Signs 07/15/24 10:39 Height 5 ft 7 in Weight 130 lb 4 oz BMI 20.4 BP 120/70 Blood Pressure Location Lt brachial Position Sitting Pulse 74 Pulse Source Pulse Oximeter Temp 97.1 F Temp Source Temporal Artery Scan Pulse Oximetry (%) 96 Oxygen Delivery Method Room Air Intake Visit Reasons: 3M Follow Up Intake Note: The patient is present today for a pre-operative evaluation in preparation for cataract surgery, scheduled with Dr. Clarke. .The right eye procedure is set for August 13, 2024, and the left eye for August 27, 2024 and 3 months medication follow up. Ticket Taker Required: No Accompanied by: Self / Same As Patient Allergies penicillin V Allergy (Unknown, Verified 07/15/24 10:40) rash Penicillins [PENICILLINS] Allergy (Unknown, Verified 07/15/24 10:40) RASH Sulfa (Sulfonamide Antibiotics) [SULFA (SULFONAMIDE ANTIBIOTICS)] Allergy (Unknown, Verified 07/15/24 10:40) RASH Medication List - Last Reconciled 07/15/24 by Raheel Colvin MD ascorbate calcium (vitamin C) 1 g PO DAILY hydrochlorothiazide 25 mg PO DAILY levothyroxine 50 mcg PO QAM lisinopril 20 mg PO DAILY lorazepam 1 mg PO BID-TID 30 days multivitamin 1 tab PO DAILY sumatriptan succinate 50 mg PO Q2-4H PRN tramadol 25 mg (1/2 x 50 mg) PO BEDTIME PRN Tobacco use date assessed: 04/16/24 Fall risk assessment: No Falls in past year Last assessed Fall Risk: 07/15/24 Dental Screening Dental Screen Date: 04/16/24 HPI 3M Follow Up HPI Details August 13 OS and the R one 08/28/2023 [facility] Medical History (Updated 07/15/24 @ 11:01 by Raheel Colvin MD) Chronic pain syndrome Tubular adenoma of colon TSH elevation Anxiety Elevated blood sugar Blood pressure elevated without history of HTN Left arm pain Breast cancer screening by mammogram Impacted cerumen of left ear Impacted cerumen of both ears Bronchitis Cough Laryngitis RUQ abdominal pain Anemia Neck pain Hypercholesterolemia Vitamin D deficiency Migraine Hypothyroidism Fibromyalgia Anxiety Insomnia Surgical History History of colon surgery Family History Father Hypertension Brain cancer Mother No problems noted. Brother Prostate cancer Daughter In good health Social History (Updated 07/15/24 @ 11:08 by Raheel Colvin MD) Housing: House Are you a primary team primary care physician to a significant other at home: No Do you presently have visiting nurse or other home services: No Alcohol intake: current Alcohol intake frequency: holidays/special occasions only Comment: 2 days/ week 2 beers Patient Tobacco Use Status: Former Tobacco user Tobacco use type: Cigarette Years Smoked: stopped 1979 e-Cigarette/Vaping Use: Never Used Second Hand Smoke Exposure: No service: No Current occupational status: retired Current occupation: left hand Cognitive needs: No Hearing needs: No Vision needs: Yes Questionnaire Thrive Questionnaire Date Thrive assessed: 04/16/24 BERNICE-7 AMB Questionnaire BERNICE-7 Date BERNICE - 7 assessed: 04/16/24 Source: Developed by Drs. Buck Colvin, Kelsy Carrillo, Jose Martínez and colleagues, with an educational marciano from [employer]. Review of Systems Const Denies poor appetite and Denies weakness Eyes Denies no additional complaints ENT Reports Normal hearing present, Denies dizziness, Denies nasal congestion, Denies tinnitus and Denies sore throat Card Denies chest pain, Denies syncope, Denies rapid heart rate and Denies dyspnea Resp Denies cough and Denies dyspnea GI Denies change in stool character, Reports constipation, Denies diarrhea, Denies nausea and Denies vomiting Denies urinary frequency, Denies difficulty voiding and Denies dysuria Neuro Reports Normal hearing present, Denies confusion, Denies dizziness, Denies syncope and Denies weakness Psych Denies confusion Physical exam (Primary Care) Vital Signs: Last Vital Signs Temp 97.1 F 07/15/24 10:39 Pulse 74 07/15/24 10:39 BP 120/70 07/15/24 10:39 Pulse Ox 96 07/15/24 10:39 Oxygen Delivery Method Room Air 07/15/24 10:39 BMI result Body Mass Index 20.4 Tobacco/Smoking Status: Tobacco use Status Tobacco use date assessed 04/16/24 07/15/24 10:41 Patient Tobacco Use Status Former Tobacco user 07/15/24 11:08 Tobacco use type Cigarette 07/15/24 11:08 e-Cigarette/Vaping Use Never Used 07/15/24 11:08 Thrive Assessment: Date of Thrive Assessment Date Thrive assessed 04/16/24 07/15/24 10:41 Const General: No confusion Orientation/consciousness: No confusion Eyes Conjunctivae: conjunctivae normal Resp Auscultation: clear to auscultation bilaterally Cardio Rate: regular rate Rhythm: regular rhythm GI Inspection: Yes normal to inspection Neuro General: No confusion Cranial nerves: Yes Normal hearing present Extrem General: Yes normal to inspection and No edema Coding Level of Care Code Est Pt Level 4 (59162) Diagnoses Preop exam for internal medicine Z01.818 Hypertension I10 Acquired hypothyroidism E03.9 Hypothyroidism type: acquired Hypercholesterolemia E78.00 Impaired glucose tolerance R73.02 Generalized anxiety disorder F41.1 Assessment & Plan Assessment & Plan (1) Preop exam for internal medicine: Code(s): Z01.818 - Encounter for other preprocedural examination Category: Medical Plan: Discussed with the patient that with the age patient belongs to the intermediate risk category. But with the low risk procedure no further workup needed at this time and may proceed with the contemplated procedure. Patient was advised to take the blood pressure medication and may take lorazepam as needed. Thank you very much for letting me participate in the care of this patient. (2) Hypertension: Code(s): I10 - Essential (primary) hypertension Category: Medical Plan: Continue with blood pressure medication. Decrease salt intake and exercise patient is on hydrochlorothiazide 25 mg once a day lisinopril 20 mg once a day (3) Hypothyroidism: Code(s): E03.9 - Hypothyroidism, unspecified Category: Medical Qualifiers: Hypothyroidism type: acquired Qualified Code(s): E03.9 - Hypothyroidism, unspecified Plan: Continue with thyroid medication 50 mcg once a day (4) Hypercholesterolemia: Code(s): E78.00 - Pure hypercholesterolemia, unspecified Category: Medical Plan: Avoid fried foods, chicken skin, eggs, butter margarine, pastries and meat. Be it pork or beef they have a lot of cholesterol continuing to monitor LDL goal of less than 130 and triglyceride of less than 150 last blood work under control (5) Impaired glucose tolerance: Code(s): R73.02 - Impaired glucose tolerance (oral) Category: Medical Plan: Decrease the amount of carbohydrate intake, pasta, bread, rice and potatoes are all sugar and that is aside from all the sweet stuff, remember that fruits are good but they are Sweet also. (6) Generalized anxiety disorder: Comment: Declined referral for counseling Code(s): F41.1 - Generalized anxiety disorder Category: Medical Plan: On lorazepam as needed Plan History of Present Illness The patient is a 74-year-old female presenting for a preoperative evaluation for cataract surgery. She has a documented history of hypothyroidism, for which she is on daily medication and was last tested in June with normal results. She also has hypercholesterolemia last tested in November 2023 showing an LDL of 127, and hypertension managed with lisinopril and hydrochlorothiazide. The patient experiences insomnia and generalized anxiety disorder, for which lorazepam is taken as needed. Her latest preoperative investigations, including a colonoscopy in April 2024, were normal, and other routine laboratory work in March 2024 showed chronic stable hyponatremia. She has cataracts requiring surgical intervention but is currently unsure about specific lens options. She mentioned her preference for distance vision correction given her experience with bifocals. Her sociocultural context, including allergies to penicillin and sulfonamides, shapes her pharmacological treatments. Health Maintenance - Colonoscopy completed April 2024, results normal - Mammogram due - Bone density test due - Monitoring LDL level with a goal of less than 130 mg/dL and triglycerides less than 150 mg/dL - Blood pressure management plan in place Social History - Reports weekend alcohol consumption, typically one drink, rarely more than two - Former smoker, currently not using cigarettes - Exercises daily with weight training, leg lifts, sit-ups, and jumping jacks - Resides in a single-floor home with access to a basement for laundry, managing stairs without complication - Current medications include thyroid medication, lisinopril, hydrochlorothiazide, lorazepam as needed, sumatriptan for migraines, tramadol for pain, multivitamins, and vitamin C Review of Systems - General: Denies recent fever, dizziness, or nausea - Cardiovascular: Denies chest pain - Respiratory: Denies shortness of breath - Musculoskeletal: No new pain reported - Neurological: Denies any loss of consciousness or neurological deficits Physical Exam General: Cooperative, healthy appearing, comfortable, no acute distress and well developed Orientation: Patient oriented x3 Limitations: No limitations Head: Normal to inspection Ears: Hearing grossly normal bilaterally Nose: Normal external nose present Face and sinus: Normal facial exam Eyes: Appearance normal, both eyes and all related structures Neck: Normal visual inspection and Yes full ROM Respiratory: Normal respiratory effort and able to speak in complete sentences. Clear to auscultation bilaterally Cardiovascular: Regular rate and rhythm. Normal S1 and S2 GI: Normal to inspection. Soft to palpation and nontender Skin: No rashes or lesions noted Neuro: Patient oriented x3 Extremities: Normal to inspection Results - Labs: No anemia, normal platelet and WBC count, chronic stable hyponatremia - Previous cholesterol test: LDL of 127 (as of November 2023) - Thyroid function test normal in June Plan In preparation for cataract surgery, I confirmed that the patient's chronic conditions are stable and do not alter surgical plans. The patient is to continue all current medications, including lorazepam for anxiety as needed. I outlined the lens options for her cataract surgery and addressed her preference for distance vision correction. No additional pre-operative testing is required, reflecting recent stable lab results. Her chronic medical management will be monitored regularly, and she was reminded of pending screenings, including a mammogram and bone density test. Patient was informed and verbally consented to the use of an ambient scribe for clinic note documentation during this visit. Discussion Notes I discussed the low risk of cataract surgery with the patient, reassuring her of its routine nature. Options for lens replacement post-cataract extraction were explained, focusing on distance vision correction due to her use of bifocals. The patient's stable health status supports proceeding with surgery. I emphasized the need for continued blood pressure management, noting that current medication regimens should be maintained prior to surgery. I advised that lorazepam can be used preoperatively to manage anxiety. We discussed the absence of a need for further preoperative testing given her stable status and recent lab results. I informed her of the need for routine health screenings such as mammogram and bone density testing. Patient Instructions - Continue current medications, including lisinopril and hydrochlorothiazide, until the day of surgery - Use lorazepam as needed for anxiety, particularly before surgery - Consider options for lens selection in cataract surgery, leaning towards distance vision correction - Follow up with scheduled mammogram and bone density test - Contact medical care if experiencing new symptoms such as chest pain, shortness of breath, or dizziness before surgery
--- OUTSIDE RECORDS SUMMARY | 2024-07-15 11:59 | XMS_ITS | Data Portability ---
Author Organization [place] [facility] Ariella Curry AONE [place] Address [address] [place] [address] Care Team Providers Care Cartographic Technician Name Role Phone MAURY SANDOVAL Referring Provider MAURY SANDOVAL Primary Care Provider Assessment Encounter Date Assessment Date Assessment LastModified by Organization Details LastModified Time 12/10/2022 12/10/2022 Persistent left shoulder pain since March 2022 following a fall. Transient improvement with cortisone injections. Most of her pain today seems over the long head of the biceps. She has some degree of impingement. Her rotator cuff strength feels well-preserved. Her MRI did not show evidence of a significant rotator cuff tear. I reviewed treatment options with her. I suggest a formal trial of physical therapy, after discussion she was amenable to taking the prescription. We may consider an ultrasound-guided long head biceps tendon sheath injection depending on her response to therapy. She will modify activities according to her symptoms. Questions invited and answered. [email or web address] Not available 12/22/2022 10:59:10 04/03/2023 04/03/2023 This is a pleasa 72-year-old female comes in with chief complaint of a biceps forearm pain however nonreproducible regarding the biceps she does have positive impingement sign regarding her left shoulder and vague forearm findings with an overall unremarkable exam except for positive Dianna's test. I had discussion with the patient regarding management. She would like to try a prednisone taper versus injection. We did discuss her holding off on any nonsteroidal anti-inflammatorie s while on her prednisone taper she will follow-up within the next 3 to 4 weeks. Should her symptoms not improve or worsen she should contact my office immediately. I may refer her to Dr. Jensen which I discussed the case with at today's visit. Patient was seen and evaluated by Ailyn Lombardo PA-C in indirect conjuction with Documenting Provider: Amber Jensen MD . He/She agrees with history, physical examination, tests/diagnostic imaging, and treatment plan. Additional treatment plan discussed with the patient (only initiated if in boldface font) otherwise not applicable. Treatment may include the following; - Provider focused nonsteroidal anti-inflammatory regimen (discussed were the pros, cons, benefits and risks as well as any black box warnings) in patients over 60 years old they should be very cautious in taking these medications due to potential decreased kidney function and or elevated blood pressure. - Analgesic pain medication for pain suppression (discussed were the pros, cons, benefits and risks as well as any black box warnings) - The use of topical pain relieving medication were discussed - The use of ice to decrease inflammation and pain - The use of assistive ambulatory devices for ambulation and fall prevention - Formal specific guided physical therapy program I reviewed my findings at length with the patient today. ? ? ?We discussed the nature and etiology of this problem along with current treatment options. We discussed the expected course and outcomes and what to expect. We also discussed risks and benefits. ? ? ? All of their questions were answered today, and there was exhibited understanding and comprehension of all that was discussed. Time Spent: 10 minutes were spent reviewing previous imaging and charting. ? ? ?10 minutes were spent obtaining patient history. ? ? ?5 minutes were spent on physical exam. ? ? ?5? ? ?minutes were spent explaining diagnosis and assessment. Today's documentation was made using voice recognition software. This note may contain grammatical errors secondary to the software. Not available 04/04/2023 08:18:12 04/24/2023 04/24/2023 73-year-old fema le with vague left upper extremity symptoms clinical exam is unremarkable diagnosis overuse syndrome. We did discuss her changing her upper extremity use when walking her dog as well as modification when she cleans. At this point she will hold off on any additional treatment however her symptoms return I will have her see for follow-up evaluation if her symptoms are from the elbow and below. Otherwise I will have her follow-up with our shoulder team. Patient is in agreement the above-noted plan she can implement [id number] treatments for symptomatic relief and left lifestyle modification. Patient was seen and evaluated by Ailyn Lombardo PA-C in indirect conjuction with Documenting Provider: Amber Jensen MD . He/She agrees with history, physical examination, tests/diagnostic imaging, and treatment plan. Additional treatment plan discussed with the patient (only initiated if in boldface font) otherwise not applicable. Treatment may include the following; - Provider focused nonsteroidal anti-inflammatory regimen (discussed were the pros, cons, benefits and risks as well as any black box warnings) in patients over 60 years old they should be very cautious in taking these medications due to potential decreased kidney function and or elevated blood pressure. - Analgesic pain medication for pain suppression (discussed were the pros, cons, benefits and risks as well as any black box warnings) - The use of topical pain relieving medication were discussed - The use of ice to decrease inflammation and pain - The use of assistive ambulatory devices for ambulation and fall prevention - Formal specific guided physical therapy program I reviewed my findings at length with the patient today. ? ? ?We discussed the nature and etiology of this problem along with current treatment options. We discussed the expected course and outcomes and what to expect. We also discussed risks and benefits. ? ? ? All of their questions were answered today, and there was exhibited understanding and comprehension of all that was discussed. Time Spent: 10 minutes were spent reviewing previous imaging and charting. ? ? ?10 minutes were spent obtaining patient history. ? ? ?5 minutes were spent on physical exam. ? ? ?5? ? ?minutes were spent explaining diagnosis and assessment. Today's documentation was made using voice recognition software. This note may contain grammatical errors secondary to the software. Not available 04/25/2023 08:20:37 Plan of Treatment Reminders Order Date Submit Date Provider Last Modified By Organization Details Last Modified Time Details Appointments None recorded. Lab None recorded. Referral None recorded. Procedures None recorded. Surgeries None recorded. Imaging XR, elbow, 3 or more view 2023 024 [email or web address], [address], [place], [address], 10:54:05 Medication Orders prednisone 20 mg tablet 2023 024 [id number], [address] [place], [place], [phone], 10:44:07 Patient TargetsNo targets recorded. Patient Instructions Encounter Date Encounter Id Patient Instructions Last Modified By Organization Details Last Modified Time 04/03/2023 [id number] Three-view x-ray of the left elbow reveals mild degenerative changes no acute bony abnormality. Not available 04/04/2023 08:18:35 Reason for Referral None Reported. Results Created Date Observation Date Name Description Value Unit Range Abnormal Flag Note LastModifiedBy Organization Detail LastModifiedTime 12/11/1904/24/2022 XR, shoul jenise No observ ation record ed. [address] [place], [address], 12/11/2022 10:29:48 12/11/1909/17/2022 MRI, knee, w/o contr ast No observ ation record ed. [email or web address] Not Available 16:36:31 Result Notes None recorded. Problems Name Problem SNOMED Code Status Onset Date Resolution Date Notes Provider Name and Address Organization Details Recorded Time Myofascial pain 967859387 Active 024 AILYN LOMBARDO PA-C [address] [facility],[address], [place], [address], [place] [facility], 10:43:16 Problem Notes None recorded. Procedures Surgical History None recorded. Imaging Results Imaging Date Name Status LastModified by Organiz ation Details LastModified Time 04/24/2022 XR, shoulder completed [email or web address] [place], [address], 12/11/2022 10:29:48 09/17/2022 MRI, knee, w/o contrast completed [email or web address] Information not available 12/10/2022 16:36:31 Procedure Notes None recorded. Medical Equipment None Reported. Allergies Allergen ID Allergen Name Allergen Category Reaction Reaction Severity Criticality Documentation Date Start Date Code Code System Note Provider Name and Address Organization Details Recorded Time 8431 Product containin g penicilli n (product) medicatio n Not available Not available Not available 12/10/2022 56197 8001 SNOMED Keisha hayward, [place] [facility], P 3 14:11:45 8432 Substance with sulfonami de structure and antibacte rial mechanism of action (substanc e) medicatio n Not available Not available Not available 12/10/2022 72841 8003 SNOMED Keisha hayward, [place] - [facility], P 3 14:11:50 Medications Name Sig Start Date Stop Date Status Note LastModified by Organization Details LastModified Time clindamycin HCl 300 mg capsule TAKE 1 CAPSULE BY MOUTH EVERY 12 HOURS UNTIL GONE active Not Available Not Available No t Available trazodone 50 mg tablet TAKE 1/2 TABLET BY MOUTH EVERY EVENING AT BEDTIME NEEDED FOR INSOMNIA 04/03 completed Not Available Not Available Not Available prednisone 20 mg tablet TAKE 3 TABLETS BY MOUTH EVERY DAY FOR 4 DAYS THEN TAKE 2 TABLETS BY MOUTH EVERY DAY FOR 4 DAYS THEN TAKE 1 TABLET BY MOUTH EVERY DAY FOR 4 DAYS active Not Available Not Available No t Available sumatriptan 50 mg tablet TAKE 1 TABLET BY MOUTH EVERY 2 TO 4 HOURS NEEDED FOR MIGRAINE HEADACHE. DO NOT EXCEED 4 DOSES PER 24 HOURS active Not Available Not Available No t Available tramadol 50 mg tablet TAKE 1/2 TABLET BY MOUTH AT BEDTIME NEEDED FOR PAIN 04/03 completed Not Available Not Available Not Available amitriptyli ne 10 mg tablet TAKE 1 TABLET BY MOUTH AT BEDTIME 04/03 completed Not Available Not Available Not Available levothyroxi ne 50 mcg tablet TAKE 1 TABLET BY MOUTH EVERY MORNING active Not Available Not Available No t Available lorazepam 1 mg tablet TAKE 1 TABLET BY MOUTH 2 TO 3 TIMES A DAY active Not Available Not Available No t Available hydrochloro thiazide 12.5 mg tablet TAKE 1 TABLET BY MOUTH DAILY active Not Available Not Available No t Available FeroSul 325 mg (65 mg iron) tablet TAKE 1 TABLET BY MOUTH TWICE DAILY active Not Available Not Available No t Available BinaxNOW COVID-19 Ag Self Test kit TEST DIRECTED TODAY 04/03 completed Not Available Not Available Not Available Vitals Date Recorded Body height Provider Name an d Address Organization Details Last Updated DateTime 04/03/[address]23 172[address] [place] [facility] 04/03/2023 10:11:39 Date Recorded Body height Body mass index (BMI) Body weight Provider Name and Address Organization Details Last Updated DateTime 12/10/2022 172.72 cm 19 kg/m2 [address]366.[address] [place] [facility] 12/10/2022 14:11:58 Social History Question Answer Notes LastModified by Organizat ion Details LastModified Time Tobacco Smoking Status Never Smoker Keisha Barnett null, [place] [facility] 12/10/2022 14:12:28 What Is Your Level Of Alcohol Consumption? Moderate [email or web address] Information not available 12/10/2022 How Many Times Per Week Do You Consume Alcohol? 3-4 Times Per Week [email or web address] Information not available 12/10/2022 Do You Use Any Illicit Or Recreational Drugs? No [email or web address] Information not available 12/10/2022 Do You Or Have You Ever Used Any Other Forms Of Tobacco Or Nicotine? No [email or web address] Information not available 12/10/2022 Sex: Unknown Functional Status None recorded. Mental Status None recorded. Family History Relationship Description Onset Age of this Age Resolved Age Notes LastModified by Organization Details LastModified Time Father Family history of malignant neoplasm [email or web address] Not available 2022 14:13:02 Medical History Condition Response Hypothyroidism Y Osteoporosis Y Gynecological HistoryNo gynecological history recorded. Obstetrics History GPAL:G 0 P 0 0 0 0 Past Encounters Encounter ID Performer Location Encounter Start Date Encounter Closed Date Diagnosis/Indication Diagnosis SNOMED-CT Code Diagnosis ICD10 Code Diagnosis Note [id number] MD AUSTYN Amor [address] [facility] [place] [address] 12/10/2022 13:17:33 12/10/2022 14:39:35 Pain of left shoulder joint [id number] 7978503 M25.512 Biceps tendinitis 457450 007 M75.22 [id number] AVELINO STARKS [address] [facility] [place] [address] 04/03/2023 09:53:56 04/03/2023 10:54:04 Pain of left elbow joint [id number] 4847319 M25.522 Myofascial pain 07340745 9 M79.10 [id number] AVELINO STARKS [facility] [address] [facility] [address] [place] [address] 04/24/2023 10:38:20 04/24/2023 11:02:47 Follow-up orthopedic assessment [id number] Z47.89 Health Concerns Section Related Observation LastModified by Organization Detai ls LastModified Time None Recorded Concern Status LastModified by Organization Details LastModified Time None Recorded Advance Directives Directive None Recorded Payers Encounter Date Sequence Insurance Name Policy Number Policy Isbell Covered Member ID Isbell Member ID Guarantor Name 12/10/2022 1 [facility] (MEDICARE REPLACEMENT/A DVANTAGE - PPO) [id number] Irena Hill [id number] Irena Hill 04/03/2023 1 [facility] (MEDICARE REPLACEMENT/A DVANTAGE - PPO) [id number] Irena Hill [id number] Irena Hill 04/24/2023 1 [facility] (MEDICARE REPLACEMENT/A DVANTAGE - PPO) [id number] Irena Hill [id number] Irena Hill Notes Date Note Type Note Provider Name and Address Organization Details Recorded Time 12/10/2022 text/html 72-year-old [id number] female here for evaluation of left shoulder pain. Symptoms have been going on for about 10 months. This started after a fall in March 2022, there was freezing rain. Her feet went out and she used her left arm as a hand brake as she fell down several stairs. Treatment has consisted of 2 cortisone injections at [place]. She reports 1 to 2 weeks of some symptomatic improvement after the injections. She has not had any physical therapy, she reports that she is physically active and does a lot of yard work and gardening. She applies occasional heat. Pain tends to bother her with rotation at the side. She points predominantly over the anterior shoulder in the region of the bicipital groove. Pain can range between a 5 to an 8 on a 10 point scale. She describes the pain as sharp and radiating. She does have some pain at rest. She feels limited with daily activities and exercise due to her shoulder pain. She is a retired food quality technician for [employer] Non-smoker. She reports a history of hypothyroidism and osteoporosis/osteopen ia. Daniel Agee MD [address] [facility],[address] [address], [place], [address], [place] [facility] 12/22/2022 11:02:19 04/03/2023 text/html Pleasant 72-year -old female with chief complaint left shoulder pain that radiates down her arm into her biceps and forearm region. She states this started last winter after she fell down the stairs. She was seen by Dr. Agee who managed her conservatively and was considering a biceps tendon sheath injection for which she did not proceed with. She had an MRI which did not suggest rotator cuff tearing. She is here for evaluation of predominant symptoms of left elbow pain. She denies neck symptoms or paresthesias. AILYN LOMBARDO PA-C [address] [facility],[address] [address], [place], [address], [facility] 04/04/2023 08:19:09 04/24/2023 text/html Assessment & Alanna nThis is a pleasant 72-year-old female comes in with chief complaint of a biceps forearm pain however nonreproducible regarding the biceps she does have positive impingement sign regarding her left shoulder and vague forearm findings with an overall unremarkable exam except for positive Dianna's test. I had discussion with the patient regarding management. She would like to try a prednisone taper versus injection. We did discuss her holding off on any nonsteroidal anti-inflammatories while on her prednisone taper she will follow-up within the next 3 to 4 weeks. Should her symptoms not improve or worsen she should contact my office immediately. I may refer her to Dr. Jensen which I discussed the case with at today's visit. HPI:Patient was placed on a prednisone taper she states that she has notable improvements however she does state some return of symptoms but she states she is very active she is continuing to walk her dog utilizing the same upper extremity she also cleans with this which exacerbates it however she states the symptoms dissipate completely when she rests her left upper extremity. AILYN LOMBARDO PA-C [address] [facility],[address], [place], [address], [place] [facility] 04/25/2023 08:20:56 OBGyn Episode No OBEpisode recorded.
--- OUTSIDE RECORDS SUMMARY | 2024-07-15 11:59 | XMS_ITS ---
Author Name [facility] Organization Unknown History of Medication Use Medication Directions Dispensed Refills Start Date End Date Stat us amitriptyline 10 mg tablet TAKE 1 TABLET BY MOUTH AT BEDTIME 04/03/2023 active trazodone 50 mg tablet TAKE 1/2 TABLET BY MOUTH EVERY EVENING AT BEDTIME NEEDED FOR INSOMNIA 04/03/2023 completed clindamycin HCl 300 mg capsule TAKE 1 CAPSULE BY MOUTH EVERY 12 HOURS UNTIL GONE active levothyroxine 50 mcg tablet TAKE 1 TABLET BY MOUTH EVERY MORNING active Allergies Allergen Reaction Severity Comment Documented Date Source Statu s PEN[place]ILLINS ENS_AONECT SULFA (SULFONAMIDE ANTIBIOTICS) ENS_AONECT Problems Problem Status Onset Date Problem Type Date of Resoluti on Source Myofascial pain active 2023-04-03 ProblemAct EN S_AONECT Encounters Encounter Type Encounter Reason Primary Diagnosis Location Date Ambulatory [facility] [place] [facility] 07/27/2023 Ambulatory [facility] [place] [facility] 12/24/2022 Ambulatory [facility] [place] [facility] 12/10/2022 Ambulatory [facility] [place] [facility] 12/10/2022 Ambulatory [facility] [place] [facility] 12/10/2022 Ambulatory [facility] [place] 12/10/2022 Ambulatory [facility] [place] 12/06/2022 Ambulatory [facility] [place] 11/20/2022
== END 2024-07-15 11:20 | disposition home or self-care (01) ==
PROVIDERS: PCP Internal Medicine; Visit Provider Internal Medicine
DX: Z01.818 Encounter for other preprocedural examination (principal); I10 Essential (primary) hypertension; E03.9 Hypothyroidism, unspecified; E78.00 Pure hypercholesterolemia, unspecified; R73.02 Impaired glucose tolerance (oral); F41.1 Generalized anxiety disorder

== ENCOUNTER → 2024-07-15 10:36 | Outpatient (BNVA) | payer MEDICARE, SELFPAY | PROVIDERS: PCP Internal Medicine; Visit Provider Internal Medicine | DX: Z01.818 Encounter for other preprocedural examination (principal); I10 Essential (primary) hypertension; E03.9 Hypothyroidism, unspecified; E78.00 Pure hypercholesterolemia, unspecified; R73.02 Impaired glucose tolerance (oral); F41.1 Generalized anxiety disorder | CPT/HCPCS: 99212 ==

== ENCOUNTER 2024-10-14 12:50 | Outpatient (AMB) | payer MEDICARE, SELFPAY ==
[2024-10-14 12:56] VITALS: BP 146/72; PULSE 97; RESP 18; TEMP 36.2; O2SAT 97; BMI 19.8
--- NOTE | 2024-10-14 12:56 | A.OFFPC_ITS ---
Vital Signs 10/14/24 12:56 10/14/24 13:21 Height 5 ft 7 in Weight 126 lb 4 oz BMI 19.8 BP 146/72 H 124/60 Blood Pressure Location Lt brachial Lt brachial Position Sitting Sitting Respiration 18 Pulse 97 Pulse Source Pulse Oximeter Temp 97.1 F Temp Source Temporal Artery Scan Pulse Oximetry (%) 97 Oxygen Delivery Method Room Air Intake Visit Reasons: 3M Follow Up Allergies penicillin V Allergy (Unknown, Verified 10/14/24 12:59) rash Penicillins (PENICILLINS) Allergy (Unknown, Verified 10/14/24 12:59) RASH Sulfa (Sulfonamide Antibiotics) (SULFA (SULFONAMIDE ANTIBIOTICS)) Allergy (Unknown, Verified 10/14/24 12:59) RASH Medication List - Last Reconciled 10/14/24 by Raheel Colvin MD ascorbate calcium (vitamin C) 1 g PO DAILY hydrochlorothiazide 25 mg PO DAILY levothyroxine 50 mcg PO QAM lisinopril 20 mg PO DAILY lorazepam 1 mg PO BID-TID 30 days multivitamin 1 tab PO DAILY sumatriptan succinate 50 mg PO Q2-4H PRN tramadol 25 mg (1/2 x 50 mg) PO BEDTIME PRN Tobacco use date assessed: 10/14/24 Fall risk assessment: No Falls in past year Last assessed Fall Risk: 10/14/24 Dental Screening Dental Screen Date: 10/14/24 Did you have a dental visit in the last 12 months?: Yes Did you have a dental problem in the last 6 months where you did not have access to dental care?: No Was dental information given to patient?: Patient has dentist [facility] Medical History (Updated 10/14/24 @ 13:16 by Raheel Colvin MD) Age-related osteoporosis without current pathological fracture Chronic pain syndrome Tubular adenoma of colon TSH elevation Anxiety Elevated blood sugar Blood pressure elevated without history of HTN Left arm pain Breast cancer screening by mammogram Impacted cerumen of left ear Impacted cerumen of both ears Bronchitis Cough Laryngitis RUQ abdominal pain Anemia Neck pain Hypercholesterolemia Vitamin D deficiency Migraine Hypothyroidism Fibromyalgia Anxiety Insomnia Surgical History History of colon surgery Family History Father Hypertension Brain cancer Mother No problems noted. Brother Prostate cancer Daughter In good health Social History Housing: House Are you a primary resident care director to a significant other at home: No Do you presently have visiting nurse or other home services: No Alcohol intake: current Alcohol intake frequency: holidays/special occasions only Comment: 2 days/ week 2 beers Patient Tobacco Use Status: Former Tobacco user Tobacco use type: Cigarette Years Smoked: 1979 e-Cigarette/Vaping Use: Never Used Second Hand Smoke Exposure: No service: No Current occupational status: retired Current occupation: left hand Cognitive needs: No Hearing needs: No Vision needs: Yes Questionnaire PHQ-9 Over the last 2 weeks, how often have you been bothered by any of the following problems? 1. Little interest or pleasure in doing things: not at all 2. Feeling down, depressed, or hopeless: not at all 3. Trouble falling or staying asleep, or sleeping too much: not at all 4. Feeling tired or having little energy: not at all 5. Poor appetite or overeating: not at all 6. Feeling bad about yourself - or that you are a failure or have let yourself or your family down: not at all 7. Trouble concentrating on things, such as reading the newspaper or watching television: not at all 8. Moving or speaking so slowly that other people could have noticed. Or the opposite - being so fidgety or restless that you have been moving around a lot more than usual: not at all 9. Thoughts that you would be better off or of hurting yourself in some way: not at all Total score: 0 Depression Screening Interpretation: Negative Depression Screening Done: Yes Source: Developed by Drs. Buck Colvin, Kelsy Carrillo, Jose Martínez and colleagues, with an educational marciano from [employer] Thrive Questionnaire Date Thrive assessed: 04/16/24 I am a: Patient What is your living situation today?: I have a steady place to live Within the past 12 months, did the food you bought not last and you didn't have the money to get more?: Never true Within the past 12 months, did you worry whether your food would run out before you got money to buy more?: Never true Do you have trouble paying for medicines?: No Do you have trouble getting transportation to medical appointments?: No Do you have trouble paying your heating and electricity bill?: No Do you have trouble taking care of your child, family member or friend?: No Do you have trouble with day-to-day activities such as bathing, preparing meals, shopping, managing finances, etc.?: No Are you currently unemployed and looking for a job?: No Are you interested in more education?: No Please select the resources that you would like help with: None Currently or been in a relationship where the following occur: I choose not to answer THRIVE Score: 0 AUDIT C Alcohol Use Questionnaire (AUDIT-C) 1. How often do you have a drink containing alcohol?: 2-4 times a month 2. How many drinks containing alcohol do you have on a typical day when you are drinking?: 1 or 2 3. How often do you have six or more drinks on one occasion?: Never Total Score: 2 BERNICE-7 AMB Questionnaire BERNICE-7 Date BERNICE - 7 assessed: 04/16/24 Feeling nervous, anxious, or on edge: 0 = Not at all Not being able to stop or control worryin = Not at all Worrying too much about different things: 0 = Not at all Trouble relaxin = Not at all Being so restless that it is hard to sit still: 0 = Not at all Becoming easily annoyed or irritable: 0 = Not at all Feeling afraid as if something awful might happen: 0 = Not at all Total BERNICE-7 score (0-4 normal; 5-9 mild; 10-14 moderate; 15-21 severe): 0 Source: Developed by Drs. Buck Colvin, Kelsy Carrillo, Jose Martínez and colleagues, with an educational marciano from [employer]. Physical exam (Primary Care) Vital Signs: Last Vital Signs Temp 97.1 F 10/14/24 12:56 Pulse 97 10/14/24 12:56 Resp 18 10/14/24 12:56 BP 124/60 10/14/24 13:21 Pulse Ox 97 10/14/24 12:56 Oxygen Delivery Method Room Air 10/14/24 12:56 BMI result Body Mass Index 19.8 Tobacco/Smoking Status: Tobacco use Status Tobacco use date assessed 10/14/24 10/14/24 13:00 Patient Tobacco Use Status Former Tobacco user 10/14/24 13:00 Tobacco use type Cigarette 10/14/24 13:00 e-Cigarette/Vaping Use Never Used 10/14/24 13:00 PHQ-9: PHQ-9 Score PHQ-9: Total score 0 10/14/24 15:19 Depression Screening Interpretation: Negative Thrive Assessment: Date of Thrive Assessment Date Thrive assessed 04/16/24 10/14/24 13:00 Currently or been in a relationship where the following occur: I choose not to answer Const General: alert; No acute distress Eyes Conjunctivae: conjunctivae normal Resp Auscultation: clear to auscultation bilaterally Cardio Rate: regular rate Rhythm: regular rhythm GI Inspection: Yes normal to inspection Extrem General: Yes normal to inspection and No edema Coding Level of Care Code Est Pt Level 4 (71320) Complex EM visit Add On G2211 Diagnoses Hypertension I10 Hypercholesterolemia E78.00 Impaired glucose tolerance R73.02 Acquired hypothyroidism E03.9 Hypothyroidism type: acquired Osteopenia M85.80 Generalized anxiety disorder F41.1 Assessment & Plan Assessment & Plan (1) Hypertension: Code(s): I10 - Essential (primary) hypertension Category: Medical Plan: Continue with blood pressure medication. Decrease salt intake and exercise patient is on lisinopril 20 mg once a day (2) Hypercholesterolemia: Code(s): E78.00 - Pure hypercholesterolemia, unspecified Category: Medical Plan: Avoid fried foods, chicken skin, eggs, butter margarine, pastries and meat. Be it pork or beef they have a lot of cholesterol LDL goal of less than 130 and t riglyceride of less than 150 with last blood work in November (3) Impaired glucose tolerance: Code(s): R73.02 - Impaired glucose tolerance (oral) Category: Medical Plan: Decrease the amount of carbohydrate intake, pasta, bread, rice and potatoes are all sugar and that is aside from all the sweet stuff, remember that fruits are good but they are Sweet also. (4) Hypothyroidism: Code(s): E03.9 - Hypothyroidism, unspecified Category: Medical Qualifiers: Hypothyroidism type: acquired Qualified Code(s): E03.9 - Hypothyroidism, unspecified Plan: Continue with thyroid medication with last test in June (5) Osteopenia: Code(s): M85.80 - Other specified disorders of bone density and structure, unspecified site Category: Medical Plan: Discussed about bone density (6) Generalized anxiety disorder: Comment: Declined referral for counseling Code(s): F41.1 - Generalized anxiety disorder Category: Medical Plan: Continue with present treatment Plan History of Present Illness The patient is a 74-year-old female presenting for a follow-up visit after a preoperative evaluation. She has a history of hypercholesterolemia, with the last cholesterol test in November 2023 showing an LDL of 127 mg/dL. Her renal function and blood sugar levels are normal, but she has persistent hyponatremia with a sodium level of 130 mmol/L, which has remained unchanged for the past year. The patient also has a history of hypothyroidism, with normal thyroid function tests in June. She experiences insomnia and generalized anxiety disorder, which are part of her chronic conditions. She has osteopenia, with the last bone density test conducted in May 2022. The patient has not had a recent mammogram or colon cancer screening, both of which are due. The patient underwent cataract surgery, which was successful, and she is currently picking up new glasses. She reports no issues with her vision post- surgery. Her blood pressure is monitored regularly, and she is currently on hydroc hlorothiazide and lisinopril. There is a discussion about adjusting her medication due to the low sodium levels, potentially by altering the dosage of hydrochlorothiazide. Health Maintenance - Colon cancer screening with stool test is due. - Mammogram is due. - Bone density test was last conducted in May 2022. - Shingles and tetanus vaccinations are up to date. Social History - The patient engages in outdoor activities but is cautious about sun exposure. - She ensures adequate hydration. Review of Systems - Cardiovascular: Denies chest pain or palpitations. - Gastrointestinal: Reports normal bowel movements. - Genitourinary: Reports normal urination. Physical Exam Results - Labs: Sodium level at 130 mmol/L, persistent for the past year. - Labs: LDL cholesterol at 127 mg/dL as of November 2023. - Labs: Normal thyroid function test in June. Plan The patient will continue monitoring her blood pressure, with a potential adjustment in her medication regimen to address the persistent hyponatremia. A follow-up blood test is scheduled in three months to reassess her sodium levels and overall health status. Preventative screenings, including a colon cancer screening and mammogram, are due and should be scheduled. The patient is advised to maintain her current lifestyle, ensuring adequate hydration and sun protection during outdoor activities. Patient was informed and verbally consented to the use of an ambient scribe for clinic note documentation during this visit. Discussion Notes During the visit, we discussed the patient's current medication regimen and the potential need to adjust her blood pressure medications due to low sodium levels. I advised her on the importance of scheduling her due preventative screenings, including a colon cancer screening and mammogram. We also reviewed her lifestyle habits, emphasizing the need for adequate hydration and sun protection. Patient Instructions - Monitor your blood pressure regularly and report any significant changes. - Schedule your colon cancer screening and mammogram as soon as possible. - Maintain adequate hydration and use sun protection during outdoor activities. - Follow up with blood tests in three months to check sodium levels. Orders: Orders Complete Blood Count Auto Diff 3 Months I10 - Essential (primary) hypertension Comprehensive Met. Panel 3 Months I10 - Essential (primary) hypertension Thyroid Stimulating Hormone 3 Months I10 - Essential (primary) hypertension Vitamin D 25-OH Total 3 Months I10 - Essential (primary) hypertension Hemoglobin A1c 3 Months I10 - Essential (primary) hypertension Free T4 (Free Thyroxine) 3 Months I10 - Essential (primary) hypertension Lipid Panel 3 Months E78.00 - Pure hypercholesterolemia, unspecified, I10 - Essential (primary) hypertension Vitamin B12 and Folate 3 Months I10 - Essential (primary) hypertension XR DEXA axial skeleton Today M81.0 - Age-related osteoporosis without current pathological fracture, M85.80 - Other specified disorders of bone density and structure, unspecified site
[2024-10-14 13:21] VITALS: BP 124/60
--- OUTSIDE RECORDS SUMMARY | 2024-10-14 13:22 | XMS_ITS | Patient Health Record ---
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) Active confirmed Problem 556094679 Personal history of colonic polyps (Z86.0100) Active confirmed Vital Signs Temperature 97.5 degrees Fahrenheit 04/20/2024 Blood pressure diastolic 00 mm Hg 04/20/2024 Height 5 ft 7 in in 04/20/2024 Blood pressure systolic 000 mm Hg 04/20/2024 Weight 125 lbs 04/20/2024 BMI 19.58 kg/m2 04/20/2024 Encounters Encounter Location Date Provider Diagnosis [facility] [place] [place] Outpatient [address] [place] [address] [id number] 05/01/2024 Mack Parmar Jr Colon cancer screening Z12.11 [facility] [address] [place] [address] 04/20/2024 Mack Parmar Jr Colon cancer screening Z12.11 ; Encounter for other preprocedural examination Z01.818 ; Personal history of colonic polyps Z86.0100 and rat exterminator current use of diuretic Z79.899 Assessments Encounter [...] hydrochlorothiazide the day before the procedure. 04/20/2024 correction current use of diuretic (ICD-10 - Z79.899) [...] Insured Coverage Start Date Coverage End Date [facility] [address] [address] [place] [address] [id number] GERARDO RAYO Self - patient is the insured Medical (General) History Medical History History ICD Code Hypothyroidism Hypertension Hyperlipidemia Elevated blood sugar Osteopenia Anxiety Surgical History Surgery Date(Month/Year) Colon resection for polyp
--- OUTSIDE RECORDS SUMMARY | 2024-10-14 13:22 | XMS_ITS ---
Author Name [facility] Organization Unknown History of Medication Use [...] Diagnosis Location Date Ambulatory [facility] 07/27/2023 Ambulatory [facility] 12/24/2022 Ambulatory [facility] 12/10/2022 Ambulatory [facility] 12/10/2022 Ambulatory [facility] 12/10/2022 Ambulatory [facility] 12/10/2022 Ambulatory [facility] 12/06/2022 Ambulatory [facility] 11/20/2022
== END 2024-10-14 13:39 | disposition home or self-care (01) ==
LOC: HO.HMCH 12:51
PROVIDERS: PCP Internal Medicine; Visit Provider Internal Medicine
DX: I10 Essential (primary) hypertension (principal); E78.00 Pure hypercholesterolemia, unspecified; R73.02 Impaired glucose tolerance (oral); E03.9 Hypothyroidism, unspecified; M85.80 Other specified disorders of bone density and structure, unspecified site; F41.1 Generalized anxiety disorder

== ENCOUNTER → 2024-10-14 12:50 | Outpatient (BNVA) | payer MEDICARE, SELFPAY | PROVIDERS: PCP Internal Medicine; Visit Provider Internal Medicine | DX: I10 Essential (primary) hypertension (principal); E78.00 Pure hypercholesterolemia, unspecified; R73.02 Impaired glucose tolerance (oral); E03.9 Hypothyroidism, unspecified; M85.80 Other specified disorders of bone density and structure, unspecified site; F41.1 Generalized anxiety disorder; Z79.899 Other long term (current) drug therapy; Z13.31 Encounter for screening for depression | CPT/HCPCS: 96127; 99212 ==

== ENCOUNTER 2025-01-14 08:41 | Outpatient (REF) | payer MEDICARE, SELFPAY ==
[2025-01-14 09:04] LABS: MANUAL DIFF FLAG NO
[2025-01-14 09:30] LABS: Hematocrit 38.0 % (37.0-47.0); Hemoglobin 13.0 g/dl (12.0-16.0); Imm Gran Abs Auto 0.02 X10*3/uL (0.00-0.03); Imm Gran Pct Auto 0.3 % (0.0-0.4); Lymphocytes Absolute Auto 1.3 X10*3/uL (1.2-4.9); Mean Corpuscular HGB Conc 34.2 g/dl (31.0-35.0); Mean Corpuscular Hemoglobin 31.4 pg (27.0-33.0); Mean Corpuscular Volume 91.8 fL (80.0-98.0); NRBC Abs Auto 0.000 X10*3/uL (0.0-0.012); NRBC Pct Auto 0.0 /100WBC (0.0-0.2); Platelet Count 364 X10*3/uL (160-400); Red Blood Count 4.14 X10*6/uL (4.20-5.50); White Blood Count 6.4 X10*3/uL (4.8-10.8)
[2025-01-14 10:22] LABS: Alanine Aminotransferase 23 U/L (0-31); Albumin Level 5.3 g/dL (3.5-5.0); Alkaline Phosphatase 65 U/L (39-117); Anion Gap 11 (12-20); Aspartate Amino Transferase 28 U/L (5-31); Blood Urea Nitrogen 12 mg/dL (9-16); Calcium 10.2 mg/dL (8.4-10.2); Carbon Dioxide 29 mmol/L (22-29); Chloride 95 mmol/L (96-108); Cholesterol 242 mg/dL (<200); Estimated Glomerular Filt Rate > 60; HDL Cholesterol 84 mg/dL (>40); Potassium 4.0 mmol/L (3.3-5.1); Sodium 131 mmol/L (135-145); Total Protein 8.4 g/dL (6.5-8.0); Triglycerides 82 mg/dL (<150)
[2025-01-14 10:31] LABS: Free T4 (Free Thyroxine) 0.94 ng/dL (0.71-1.85); Thyroid Stimulating Hormone 2.07 uIU/mL (0.32-4.0)
[2025-01-14 11:09] LABS: Folate 12.2 ng/mL (> or = 4.0); Vitamin B12 317 pg/mL (200-900)
== END 2025-01-14 08:42 | disposition home or self-care (01) ==
LOC: HO.LAB 08:41
PROVIDERS: PCP Internal Medicine; Visit Provider Internal Medicine
DX: I10 Essential (primary) hypertension (principal); E78.00 Pure hypercholesterolemia, unspecified; Z13.1 Encounter for screening for diabetes mellitus; Z13.21 Encounter for screening for nutritional disorder
CPT/HCPCS: 36415; 80053; 80061; 82306; 82607; 82746; 83036; 84439; 84443; 85025

== ENCOUNTER 2025-01-20 09:31 | Outpatient (AMB) | payer OTHER, SELFPAY ==
--- OUTSIDE RECORDS SUMMARY | 2024-05-01 05:40 | XMS_ITS ---
Author Organization [facility] Address [address] [place] [phone] Care Team Providers Care Canal Equipment Maintenance Supervisor Name Role Phone Raheel Colvin MD Primary Care Provider Mack Dockery Jr Unavailable [phone] REASON FOR VISIT screening Encounters Encounter Location Date Provider Diagnosis [facility] [place] [address] [place] [phone] 05/01/2024 Mack Parmar Jr Colon cancer screening Z12.11 Assessments Encounter Date Diagnosis (ICD Code) Assessment Notes Treatment Notes Treatment Clinical Notes Section Notes 05/01/2024 Colon cancer screening (ICD-10 - Z12.11) Plan Of Treatment No Information Progress Notes * GERARDO RAYODOB:1950 (74 yo F)Acc No.[id number]:05/01/2024 COLON WITH MAC Patient: GERARDO LEAVITT Provider: Nataliia Parmar MD :1950 A ge:74 Y S ex:Female Date:05/01/2024 Address:[address] [place], [place] [id number] Pcp:Raheel Colvin MD Subjective: * Chief Complaints: * 1 . Screening. * Medical History: Objective: * Vitals: Assessment: * Assessment: 1. C olon cancer screening - Z12.11 (Primary) Plan: * Treatment: * Procedure Codes: 4 5378 DIAGNOSTIC COLONOSCOPY, 0529F INTRVL 3+YRS PTS CLNSCP DOCD, 0528F RCMND FLW-UP 10 YRS DOCD * * The named appointment provid er may or may not be the originator of this progress note, and it is not deemed complete until electronically signed by the appointment provider. Sign off status: Pending * Provider: Nataliia Parmar MD Date: 0 05/01/2024 Generated for Elton diaz/Karoline/Alicia on: 03/22/2024 10:39 AM EST
[2025-01-20 09:34] VITALS: BP 128/82; PULSE 82; TEMP 36.3; O2SAT 98; BMI 20.2
--- NOTE | 2025-01-20 09:34 | MHC.PC.OV ---
Vital Signs 01/20/25 09:34 Height 5 ft 7 in Weight 129 lb 4 oz BMI 20.2 BP 128/82 Blood Pressure Location Lt brachial Position Sitting Pulse 82 Pulse Source Pulse Oximeter Temp 97.3 F Temp Source Temporal Artery Scan Pulse Oximetry (%) 98 Oxygen Delivery Method Room Air Intake Visit Reasons: annual exam Allergies penicillin V Allergy (Unknown, Verified 01/20/25 09:53) rash Penicillins (PENICILLINS) Allergy (Unknown, Verified 01/20/25 09:53) RASH Sulfa (Sulfonamide Antibiotics) (SULFA (SULFONAMIDE ANTIBIOTICS)) Allergy (Unknown, Verified 01/20/25 09:53) RASH Medication List - Last Reconciled 01/20/25 by Praveena Scales PA-C ascorbate calcium (vitamin C) 1 g PO DAILY hydrochlorothiazide 25 mg PO DAILY levothyroxine 50 mcg PO QAM lisinopril 20 mg PO DAILY lorazepam 1 mg PO BID-TID 30 days multivitamin 1 tab PO DAILY sumatriptan succinate 50 mg PO Q2-4H PRN tramadol 25 mg (1/2 x 50 mg) PO BEDTIME PRN Tobacco use date assessed: 10/14/24 Fall risk assessment: No Falls in past year Last assessed Fall Risk: 10/14/24 Dental Screening Dental Screen Date: 10/14/24 Did you have a dental visit in the last 12 months?: Yes Did you have a dental problem in the last 6 months where you did not have access to dental care?: No Was dental information given to patient?: Patient has dentist HPI annual exam HPI Details 74-year-old female with past medical history of hypothyroidism, insomnia, hypercholesterolemia, impaired glucose tolerance, anxiety, hypertension last seen 09/2024 coming in for annual exam. Presenting for her annual wellness visit. Her lab work revealed a mildly elevated bad cholesterol (LDL) of 142, with a goal of less than 130. She reports she tries to eat healthy but notes that butter may be a significant part of her diet. The patient has a history of chronically low sodium levels, which has been present since at least last year. Her medication, hydrochlorothiazide, may be contributing to this issue. Mammogram: 07/2022 due - declined Colonoscopy: 04/2024 eye doctor: [facility] yearly Bone density: 07/2022 due Vaccinations: [facility] Medical History Age-related osteoporosis without current pathological fracture Chronic pain syndrome Tubular adenoma of colon TSH elevation Anxiety Elevated blood sugar Blood pressure elevated without history of HTN Left arm pain Breast cancer screening by mammogram Impacted cerumen of left ear Impacted cerumen of both ears Bronchitis Cough Laryngitis RUQ abdominal pain Anemia Neck pain Hypercholesterolemia Vitamin D deficiency Migraine Hypothyroidism Fibromyalgia Anxiety Insomnia Surgical History History of colon surgery Family History Father Hypertension Brain cancer Mother No problems noted. Brother Prostate cancer Daughter In good health Social History Housing: House Are you a primary daycare manager to a significant other at home: No Do you presently have visiting nurse or other home services: No Alcohol intake: current Alcohol intake frequency: holidays/special occasions only Comment: 2 days/ week 2 rivera Patient Tobacco Use Status: Former Tobacco user Tobacco use type: Cigarette Years Smoked: stopped 1979 e-Cigarette/Vaping Use: Never Used Second Hand Smoke Exposure: No service: No Current occupational status: retired Current occupation: left hand Cognitive needs: No Hearing needs: No Vision needs: Yes Questionnaire PHQ-9 Over the last 2 weeks, how often have you been bothered by any of the following problems? 1. Little interest or pleasure in doing things: not at all 2. Feeling down, depressed, or hopeless: not at all 3. Trouble falling or staying asleep, or sleeping too much: not at all 4. Feeling tired or having little energy: not at all 5. Poor appetite or overeating: not at all 6. Feeling bad about yourself - or that you are a failure or have let yourself or your family down: not at all 7. Trouble concentrating on things, such as reading the newspaper or watching television: not at all 8. Moving or speaking so slowly that other people could have noticed. Or the opposite - being so fidgety or restless that you have been moving around a lot more than usual: not at all 9. Thoughts that you would be better off or of hurting yourself in some way: not at all Total score: 0 Depression Screening Interpretation: Negative Depression Screening Done: Yes Source: Developed by Drs. Buck Colvin, Kelsy Carrillo, Jose Martínez and colleagues, with an educational marciano from [employer]. Thrive Questionnaire Date Thrive assessed: 01/13/25 AUDIT C Alcohol Use Questionnaire (AUDIT-C) 1. How often do you have a drink containing alcohol?: 2-4 times a month 2. How many drinks containing alcohol do you have on a typical day when you are drinking?: 1 or 2 3. How often do you have six or more drinks on one occasion?: Never Total Score: 2 BERNICE-7 AMB Questionnaire BERNICE-7 Date BERNICE - 7 assessed: 04/16/24 Feeling nervous, anxious, or on edge: 0 = Not at all Not being able to stop or control worryin = Not at all Worrying too much about different things: 0 = Not at all Trouble relaxin = Not at all Being so restless that it is hard to sit still: 0 = Not at all Becoming easily annoyed or irritable: 0 = Not at all Feeling afraid as if something awful might happen: 0 = Not at all Total BERNICE-7 score (0-4 normal; 5-9 mild; 10-14 moderate; 15-21 severe): 0 Source: Developed by Drs. Buck Colvin, Jose Worthington and colleagues, with an educational marciano from [employer]. Review of Systems Const Denies body aches, Denies fatigue, Denies fever(s), Denies frequent falls, Reports headache(s) (every other week ) and Denies weakness Eyes Reports no additional complaints, Denies change in vision and Reports requires corrective lenses ENT Denies dysphagia, Denies dizziness, Denies facial pain, Reports headache(s) (every other week ), Denies nasal congestion and Denies odynophagia Card Denies chest pain, Denies syncope, Denies irregular heart rhythm, Denies leg edema, Denies lightheadedness and Denies dyspnea Resp Denies cough and Denies dyspnea GI Denies constipation, Denies dysphagia, Denies dyspepsia, Denies diarrhea, Denies nausea, Denies odynophagia and Denies vomiting Denies urinary frequency, Denies dysuria, Denies urinary hesitancy and Denies urinary urgency Musc Denies back pain and Denies myalgias Skin/Breast Reports system reviewed and no additional complaints, except as documented Neuro Denies dizziness, Denies syncope, Denies frequent falls, Reports headache(s) (every other week ) and Denies weakness Psych Reports no additional complaints Endo Denies fatigue Physical exam (Primary Care) Vital Signs: Last Vital Signs Temp 97.3 F 01/20/25 09:34 Pulse 82 01/20/25 09:34 BP 128/82 01/20/25 09:34 Pulse Ox 98 01/20/25 09:34 Oxygen Delivery Method Room Air 01/20/25 09:34 BMI result Body Mass Index 20.2 Tobacco/Smoking Status: Tobacco use Status Tobacco use date assessed 10/14/24 01/20/25 09:39 Patient Tobacco Use Status Former Tobacco user 01/20/25 09:39 Tobacco use type Cigarette 01/20/25 09:39 e-Cigarette/Vaping Use Never Used 01/20/25 09:39 PHQ-9: PHQ-9 Score PHQ-9: Total score 0 01/20/25 09:53 Depression Screening Interpretation: Negative Thrive Assessment: Date of Thrive Assessment Date Thrive assessed 01/13/25 01/20/25 09:39 Const General: cooperative, healthy appearing, comfortable and no acute distress Orientation/consciousness: patient oriented x3 HENMT Head: Yes normocephalic Ears: hearing grossly normal bilaterally, external ears normal, TM's normal bilaterally and Abnormal EAC present cerumen impaction on the right General nose exam: Normal external nose present Face and sinus: Yes normal facial exam and Yes sinuses nontender Mouth: Normal oral and palatal mucosa present and tongue normal Throat: Yes posterior oropharynx normal Eyes General: appearance normal, both eyes and all related structures Conjunctivae: conjunctivae normal Pupils: Equal, round and reactive pupils present EOM: EOMs intact bilaterally and No Nystagmus present Neck Neck: Yes normal visual inspection, Yes full ROM and Yes no lymphadenopathy Chest Chest palpation & inspection: normal inspection of the chest Resp Effort & Inspection: normal respiratory effort Auscultation: clear to auscultation bilaterally, no crackles, no rales, no rhonchi, no wheezes and breath sounds present Cardio Rate: regular rate Rhythm: regular rhythm Peripheral pulses: radial pulses present and dorsalis pedis present GI Inspection: Yes normal to inspection and No Abdominal wall edema Palpation (GI): Soft to palpation, not firm and nontender Auscultation: normal bowel sounds Rectal Exam - Female: deferred General: Yes no CVA tenderness Back/Spine/Pelvis Back: no CVA tenderness Skin General skin exam: no rashes or lesions noted Neuro General: patient oriented x3 Cranial nerves: Yes Equal, round and reactive pupils present, Yes Midline tongue present, Yes Ability to bilaterally elevate shoulders present and No Nystagmus present Gait exam (Neuro): Normal gait present Extrem General: Yes normal to inspection, Yes full ROM, No no pedal edema and No edema Psych Speech and movement: Normal speech and movement present Affect: normal affect Insight: Good insight present (Psych) Judgement: Good judgement present (Psych) Coding Level of Care Code Est Pt Prev Care >65y(95732) Diagnoses Annual physical exam Z00.00 Mammogram declined Z53.20 Generalized anxiety disorder F41.1 Hypertension I10 Hypercholesterolemia E78.00 Impaired glucose tolerance R73.02 Acquired hypothyroidism E03.9 Hypothyroidism type: acquired Osteopenia M85.80 Migraine without status migrainosus, not intractable, unspecified migraine type G43.909 Intractability: not intractable Migraine type: unspecified Status migrainosus presence: without status migrainosus Right ear impacted cerumen H61.21 Assessment & Plan Assessment & Plan (1) Annual physical exam: Code(s): Z00.00 - Encounter for general adult medical examination without abnormal findings Category: Medical Plan: Patient is up-to-date on all recommended routine screenings and vaccinations for her age with the exception of mammogram. Patient declines a mammogram today and understands the risk of not having this performed. Blood work is up-to-date and has been reviewed with the patient today. Healthy diet and regular exercise is encouraged. (2) Mammogram declined: Code(s): Z53.20 - Procedure and treatment not carried out because of patient's decision for unspecified reasons Category: Medical Plan: Declined today and understands the risks of not having this performed. (3) Generalized anxiety disorder: Comment: Declined referral for counseling Code(s): F41.1 - Generalized anxiety disorder Category: Medical Plan: Continue on Lorazepam BID and feels this is beneficial. (4) Hypertension: Code(s): I10 - Essential (primary) hypertension Category: Medical Plan: Continue on current blood pressure medication. Avoid salt intake and encourage healthy diet and regular exercise. Discussed with Dr. Colvin the use of hydrochlorothiazide in the setting of hyponatremia. As the patient is stable he is comfortable leaving her on this medication and we will continue to follow blood work. (5) Hypercholesterolemia: Code(s): E78.00 - Pure hypercholesterolemia, unspecified Category: Medical Plan: Avoid foods that are high in cholesterol such as red meat, fried foods, eggs and baked goods. Triglyceride goal of less than 150 and LDL goal of less than 130. Last LDL 142 discuseed dietary and lifestyle and plan to repeat in 3 months. (6) Impaired glucose tolerance: Code(s): R73.02 - Impaired glucose tolerance (oral) Category: Medical Plan: Decrease the amount of carbohydrates such as pasta, bread, rice, and potatoes and limit the amount of sweets. Although fruits are generally healthy they should be eaten in moderation as they are still high in sugar. (7) Hypothyroidism: Code(s): E03.9 - Hypothyroidism, unspecified Category: Medical Qualifiers: Hypothyroidism type: acquired Qualified Code(s): E03.9 - Hypothyroidism, unspecified Plan: Last blood work was within normal limits and continue with Levothyroxine daily. (8) Osteopenia: Comment: DEXA 2022 Code(s): M85.80 - Other specified disorders of bone density and structure, unspecified site Category: Medical Plan: Last bone density was 2022 and due this year and order was placed. (9) Migraine: Code(s): G43.909 - Migraine, unspecified, not intractable, without status migrainosus Category: Medical Qualifiers: Intractability: not intractable Migraine type: unspecified Status migrainosus presence: without status migrainosus Qualified Code(s): G43.909 - Migraine, unspecified, not intractable, without status migrainosus Plan: Sumatriptam has been helping with intermittent migraines. (10) Right ear impacted cerumen: Code(s): H61.21 - Impacted cerumen, right ear Category: Medical Plan: Cerumen impaction was cleared successfully using a lighted curette. Patient tolerated the procedure well and TM was visualized as intact with well aerated middle ear spaces without perforation or retraction. Follow up as needed for this concern and avoid the use of Q-tips Plan This note was constructed using voice recognition software. While every effort has been made to ensure accuracy and recordist chief, still areas may have been included sometimes these areas may affect the content or meeting of the given symptoms. Total time spent caring for the patient today was 30 minutes. This includes time spent before the visit reviewing the chart, time spent during the visit, and time spent after the visit and documentation. Patient was informed and verbally consented to the use of an ambient scribe for clinic note documentation during this visit. Orders: Orders Lipid Panel 3 Months E78.00 - Pure hypercholesterolemia, unspecified
--- OUTSIDE RECORDS SUMMARY | 2025-01-20 10:40 | XMS_ITS | Patient Health Record ---
Author Organization [facility] Address [address] [place] [address] Care Team Providers Care Machine Packager Name Role Phone Raheel Colvin MD Primary Care Provider Mack Dockery Jr Unavailable [phone] Allergies Allergen (clinical drug ingredient) Drug/Non Drug Allergy documented on EMR Reaction Allergy Type Onset Date Status Penicillin Unknown Drug Allergy Active Substance with sulfonamide structure and antibacterial mechanism of action (substance) Sulfa Antibiotics Unknown Drug Allergy Active Reason For Referral No Information Medications Medication SIG (Take, Route, Frequency, Duration) Notes Start Date End Date Status LORazepam 1 MG Oral; Duration: 25 Active Levothyroxine Sodium 50 MCG TAKE 1 TABLE T BY MOUTH EVERY MORNING Oral; Duration: 90 Active Lisinopril-hydroCHLOROthiaz margaret 10-12.5 MG Oral; Duration: 30 Active SUMAtriptan Succinate 50 MG TAKE 1 TABLE T BY MOUTH EVERY 2 TO 4 HOURS NEEDED FOR MIGRAINE HEADACHE. DO NOT EXCEED 4 DOSES PER 24 HOURS Oral; Duration: 7 [id number],Unavai lable Active Lisinopril 20 MG Oral; Duration: 90 Active MiraLax (colon prep) 17 GM/SCOOP mixed with Gatorade or Crystal Light Orally begin at 5:00 p.m. the day before the procedure; Duration: 1 day 04/20/2024 Active traMADol HCl 50 MG Oral; Duration: 30 as needed Active hydroCHLOROthiazide 25 MG TAKE 1 TABLET BY MOUTH DAILY Oral; Duration: 90 I10,Unavailab le Active Immunizations Vaccine Route [...] Problem Status W/U Status Risk Notes Problem Colon cancer screening (434934311) Colon cancer screening (Z12.11) Active confirmed Problem Pre-procedure evaluation check (527794707) Encounter for other preprocedural examination (Z01.818) Active confirmed Problem Long-term current use of drug therapy (275737934) [facility] current use of diuretic (Z79.899) Active confirmed Problem History of polyp of colon (situation) (448693770) Personal history of colonic polyps (Z86.0100) Active confirmed Vital Signs Temperature 97.5 degrees Fahrenheit 04/20/2024 Blood pressure diastolic 00 mm Hg 04/20/2024 Height 5 ft 7 in in 04/20/2024 Blood pressure systolic 000 mm Hg 04/20/2024 Weight 125 lbs 04/20/2024 BMI 19.58 kg/m2 04/20/2024 Encounters Encounter Location Date Provider Diagnosis [facility] [place] [facility] [address] [place] [id number] 05/01/2024 Mack Parmar Jr Colon cancer screening Z12.11 [facility] [address] [place] [address] 04/20/2024 Mack Parmar Jr Colon cancer screening Z12.11 ; Encounter for other preprocedural examination Z01.818 ; Personal history of colonic polyps Z86.0100 and oil heaterman current use of diuretic Z79.899 Assessments Encounter [...] hydrochlorothiazide the day before the procedure. 04/20/2024 oil heaterman current use of diuretic (ICD-10 - Z79.899) [...] Insured Coverage Start Date Coverage End Date [facility] [address] [address] [place] [address] [id number] GERARDO RAYO Self - patient is the insured Medical (General) History Medical History History ICD Code Hypothyroidism Hypertension Hyperlipidemia Elevated blood sugar Osteopenia Anxiety Surgical History Surgery Date(Month/Year) Colon resection for polyp
== END 2025-01-20 10:23 | disposition home or self-care (01) ==
LOC: HO.HMCH 09:31
PROVIDERS: PCP Internal Medicine
DX: Z00.00 Encounter for general adult medical examination without abnormal findings (principal); Z53.20 Procedure and treatment not carried out because of patient's decision for unspecified reasons; F41.1 Generalized anxiety disorder; I10 Essential (primary) hypertension; E78.00 Pure hypercholesterolemia, unspecified; R73.02 Impaired glucose tolerance (oral); E03.9 Hypothyroidism, unspecified; M85.80 Other specified disorders of bone density and structure, unspecified site; G43.909 Migraine, unspecified, not intractable, without status migrainosus; H61.21 Impacted cerumen, right ear

== ENCOUNTER 2025-02-03 10:07 | Outpatient (REF) | payer OTHER, SELFPAY ==
--- OUTSIDE RECORDS SUMMARY | 2024-05-01 05:40 | XMS_ITS ---
Author Organization [facility] Address [address] [place] [phone] Care Team Providers Care Inter Com Servicer Name Role Phone Raheel Colvin MD Primary Care Provider Mack Dockery Jr Unavailable REASON FOR VISIT screening Encounters Encounter Location Date Provider Diagnosis [facility] [place] [address] [place] [phone] 05/01/2024 Mack Parmar Jr Colon cancer screening Z12.11 Assessments Encounter Date Diagnosis (ICD Code) Assessment Notes Treatment Notes Treatment Clinical Notes Section Notes 05/01/2024 Colon cancer screening (ICD-10 - Z12.11) Plan Of Treatment No Information Progress Notes * GERARDO RAYODOB:1950 (74 yo F)Acc No.[id number]:05/01/2024 COLON WITH MAC Patient: GERARDO LEAVITT Provider: Nataliia Parmar MD :1950 A ge:74 Y S ex:Female Date:05/01/2024 Address:[address] [place], [place] [phone] Pcp:Raheel Colvin MD Subjective: * Chief Complaints: * S creening Assessment: * Assessment: 1. C olon cancer screening - Z12.11 (Primary) Plan: * Procedure Codes: 4 5378 DIAGNOSTIC [id number] INTRVL 3+YRS PTS CLNSCP [id number] RCMND FLW-UP 10 YRS DOCD Billing Information: * Procedure Codes: 80752 DIAGNOSTIC COLONOSCOPY. 0529F INTRVL 3+YRS PTS CLNSCP DOCD. 0528F RCMND FLW-UP 10 YRS DOCD. * The named appointment provid er may or may not be the originator of this progress note, and it is not deemed complete until electronically signed by the appointment provider. Sign off status: Pending * Provider: Nataliia Parmar MD Date: 0 05/01/2024 Generated for Elton diaz/Karoline/Amrikitting on: 1 04/05/2024 07:09 PM EST
--- NOTE | ~2025-02-03 | MM_ITS ---
EXAMINATION: DXA BONE DENSITY AXIAL HISTORY: M81.0 - Age-related osteoporosis without current pathological fracture TECHNIQUE: View2Gether Dual energy absorptiometry (DEXA) of the lumbar spine, total left hip, and femoral neck was performed. COMPARISON: Comparison is made with the prior examination dated 07/20/2022. FINDINGS: The bone mineral density of the lumbar spine is 1.091 g/cm2, corresponding to a T-score of -0.7, and a Z-score of 1.2. This is indicative of normal bone mineral density. This represents a BMD change of -3.5% compared to the prior exam. This is statistically significant. The bone mineral density of the left total hip is 0.729 g/cm2, corresponding to a T-score of -2.2, and a Z-score of -0.4. This is indicative of osteopenia. This represents a BMD change of -2.4% compared to the prior exam. This is not statistically significant. The bone mineral density of the left femoral neck is 0.735 g/cm2, corresponding to a T-score of -2.2, and a Z-score of -0.2. This is indicative of osteopenia. This represents a BMD change of -2.1% compared to the prior exam. FRACTURE RISK: The FRAX index suggests a ten year probability of major osteoporotic fracture of 11.8%, and of hip fracture 3.1%. MM/XR DEXA axial skeleton IMPRESSION: Based on bone mineral density, and according to World Health Organization (WHO) criteria, the diagnosis is consistent with osteopenia. Statistically, 68% of repeat scans fall within 1 SD (+/- 0.010 g/cm2 for AP spine L1-L4) and 1 SD (+/- 0.012 g/cm2 for femur total) FRAX is a trademark of the [employer] [place] [employer] Met[employer] Bone Disease, a World Health Organization (WHO) Collaborating Center. Electronically signed by: Buck Wiggins MD 02/03/2025 10:56 AM [facility]
--- OUTSIDE RECORDS SUMMARY | 2025-02-03 19:09 | XMS_ITS | Patient Health Record ---
Author Organization [facility] Address [address] [place] [address] Care Team Providers Care Superintendent [employer]cher[employer] Name Role Phone Raheel Colvin MD Primary Care Provider Mack Dockery Jr Unavailable Allergies Allergen (clinical drug ingredient) Drug/Non Drug Allergy documented on EMR Reaction Allergy Type Onset Date Status Substance with sulfonamide structure and antibacterial mechanism of action (substance) Sulfa Antibiotics Unknown Drug Allergy Active Penicillin Unknown Drug Allergy Active Reason For Referral No Information Medications Medication SIG (Take, Route, Frequency, Duration) Notes Start Date End Date Status LORazepam 1 MG Tablet Oral; Duration: 25 Active Levothyroxine Sodium 50 MCG Tablet TAKE 1 TABLET BY MOUTH EVERY MORNING Oral; Duration: 90 Active Lisinopril-hydroCHLOROthiaz margaret 10-12.5 MG Tablet Oral; Duration: 30 Active SUMAtriptan Succinate 50 MG Tablet TAKE 1 TABLET BY MOUTH EVERY 2 TO 4 HOURS NEEDED FOR MIGRAINE HEADACHE. DO NOT EXCEED 4 DOSES PER 24 HOURS Oral; Duration: 7 [id number],Unavai lable Active Lisinopril 20 MG Tablet Oral; Duration: 90 Active MiraLax (colon prep) 17 GM/SCOOP Powder mixed with Gatorade or Crystal Light Orally begin at 5:00 p.m. the day before the procedure; Duration: 1 day 04/20/2024 Active traMADol HCl 50 MG Tablet Oral; Duration: 30 as needed Active hydroCHLOROthiazide 25 MG Tablet TAKE 1 TABLET BY MOUTH DAILY Oral; Duration: 90 I10,Unavailab le Active Immunizations Vaccine Route Administration Date Status Comme nts Influenza Unknown 01/07/2024 Administered Social History Tobacco Use: Social History Observation Description Date Details (start date - stop date) Never Smoker NA - NA Social History Drugs/Alcohol: Social Info Question Answer Notes Alcohol Screen Did you have a drink containing alcohol in the past year? Yes How often did you have a drink containing alcohol in the past year? 2 to 4 times a month (2 points) How many drinks did you have on a typical day when you were drinking in the past year? 1 or 2 drinks (0 point) How often did you have 6 or more drinks on one occasion in the past year? Never (0 point) Points 2 Interpretation Negative Tobacco Use: Social Info Question Answer Notes Tobacco Use/Smoking Patient is a nonsmoker Additional Details Category Social Info Options Details Miscellaneous: Marital status: single Occupation: retired Problems Problem Type SNOMED Code ICD Code Onset Dates Problem Status W/U Status Risk Notes Problem Colon cancer screening (707640087) Colon cancer screening (Z12.11) Active confirmed Problem Pre-procedure evaluation check (798510480) Encounter for other preprocedural examination (Z01.818) Active confirmed Problem Long-term current use of drug therapy (243806315) halfway current use of diuretic (Z79.899) Active confirmed Problem History of polyp of colon (situation) (150817538) Personal history of colonic polyps (Z86.0100) Active confirmed Vital Signs Temperature 97.5 degrees Fahrenheit 04/20/2024 Blood pressure diastolic 00 mm Hg 04/20/2024 Height 5 ft 7 in in 04/20/2024 Blood pressure systolic 000 mm Hg 04/20/2024 Weight 125 lbs 04/20/2024 BMI 19.58 kg/m2 04/20/2024 Encounters Encounter Location Date Provider Diagnosis [facility] [place] [address] [place], [place] [phone] 05/01/2024 Mack Parmar Jr Colon cancer screening Z12.11 [facility] [address] [place] [address] 04/20/2024 Mack Parmar Jr Colon cancer screening Z12.11 ; Encounter for other preprocedural examination Z01.818 ; Personal history of colonic polyps Z86.0100 and halfway current use of diuretic Z79.899 Assessments Encounter [...] hydrochlorothiazide the day before the procedure. 04/20/2024 terminal operator current use of diuretic (ICD-10 - Z79.899) [...] Insured Coverage Start Date Coverage End Date [facility] [address] [address] [place] [address] [id number] GERARDO RAYO Self - patient is the insured Medical (General) History Medical History History ICD Code Hypothyroidism Hypertension Hyperlipidemia Elevated blood sugar Osteopenia Anxiety Surgical History Surgery Date(Month/Year) Colon resection for polyp
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
== END 2025-02-03 10:08 | disposition home or self-care (01) ==
LOC: HO.MAMMO 10:07
PROVIDERS: PCP Internal Medicine; Visit Provider Internal Medicine
DX: M81.0 Age-related osteoporosis without current pathological fracture (principal); M85.80 Other specified disorders of bone density and structure, unspecified site
CPT/HCPCS: 77080

== ENCOUNTER → 2025-02-03 10:30 | Outpatient (BNV) | payer OTHER, SELFPAY | PROVIDERS: PCP Internal Medicine; Visit Provider Radiology Diagnostic Radiology | DX: E28.39 Other primary ovarian failure (principal) | CPT/HCPCS: 77080 ==